=== PATIENT | female | born 1930 | race Caucasian/White ===

== ENCOUNTER → 2016-09-17 | Outpatient (CLI) | payer MEDICARE ==
[2016-09-17 15:52] LABS: BLOOD UREA NITROGEN 33 mg/dL (7-20); CREATININE RESULT 1.14 mg/dL (0.52-1.25)
== END ==
LOC: OD 12:41
PROVIDERS: ATTEND Internal Medicine
DX: Z01.812 Encounter for preprocedural laboratory examination (principal)
CPT/HCPCS: 36415; 82565; 84520

== ENCOUNTER → 2016-09-19 | Outpatient (CLI) | payer MEDICARE ==
--- NOTE | 2016-09-19 12:32 | RADIOLOGY REPORT (SQ) ---
EXAM DESCRIPTION: CT CHEST WITH COMPLETED DATE/TIME: 09/19/2016 10:34 am REASON FOR STUDY: COUGH R05 COUGH COMPARISON: 08/31/2015 TECHNIQUE: CT scan of the chest performed using helical scanning technique with dynamic intravenous contrast injection. Images reviewed with lung, soft tissue and bone windows. Reconstructed coronal and sagittal MPR images reviewed. All images stored on PACS. All CT scanners at this facility use dose modulation, iterative reconstruction, and/or weight based d osing when appropriate to reduce radiation dose to as low as reasonably achievable (ALARA). [facility]: Dose Right [facility]: CareDose [facility]: Dose Right [facility]: Teradose 4D [facility]: Hyperpublic CONTRAST TYPE AND DOSE: contrast/concentration: Isovue 370.00 mg/ml; Total Contrast Delivered: 68.5 ml; Total Saline Delivered: 20.0 ml RENAL FUNCTION: BUN 33 creatinine 1.14 RADIATION DOSE: Up-to-date CT equipment and radiation dose reduction techniques were employed. CTDIv ol: 4.9 mGy. DLP: 159 mGy-cm. . LIMITATIONS: None. FINDINGS: LUNGS AND PLEURA: Chronic parenchymal changes and bronchiectasis in the lateral segment of the right middle lobe are again noted and similar to the prior study. Scarring is noted in the righ t lower lobe at the site of the previously noted infiltrate. Scarring noted at both lung apices, unc hanged. Mild scarring noted at the left lung base in the lower lobe. No focal infiltrates are ident ified. No worrisome pulmonary lesions are identified. No pneumothorax. No effusion. HILAR AND MEDIASTINAL STRUCTURES: Calcifications again noted in the right hilum, unchanged. No adeno raymundo identified in the mediastinum or rohan HEART AND VASCULAR STRUCTURES: No aneurysm or dissection. Calcific and fibrofatty atheromatous disea se noted. No central pulmonary emboli. No pericardial effusion. Coronary artery calcifications. HARDWARE: None in the chest. UPPER ABDOMEN: No significant findings. 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 Limited exam . THYROID AND OTHER SOFT TISSUES: No masses. No adenopathy. BONES: Prior kyphoplasty at T8. Compression deformity of T6 and T7 in noted which have progressed in comparison the prior study compression deformity of the T11 also noted, unchanged. OTHER: No other significant finding. IMPRESSION: No acute abnormality identified within the chest. Chronic parenchymal changes noted in both lower lobes and in the right middle lobe. No worrisome pulmonary nodules. Multiple compression deformities noted throughout the thoracic spine, slightly progressed in comparison the prior CT. TECHNICAL DOCUMENTATION: JOB ID: [id number] Quality ID # [id number]: Final reports with documentation of one or more dose reduction techniques (e.g., Au tomated exposure control, adjustment of the mA and/or kV according to patient size, use of iterative reconstruction technique) 2010 [employer]- All Rights Reserved
== END ==
LOC: RAD 10:05
PROVIDERS: ATTEND Internal Medicine
DX: R05 Cough (principal); J47.9 Bronchiectasis, uncomplicated
CPT/HCPCS: 71260

== ENCOUNTER → 2017-03-06 | Outpatient (CLI) | payer MEDICARE ==
[2017-03-06 10:26] LABS: ABSOLUTE EOSINOPHILS # (AUTO) 0.2 10^3/uL (0.0-0.6); ABSOLUTE LYMPHOCYTES (AUTO) 0.8 10^3/uL (0.5-4.7); ABSOLUTE MONOCYTES (AUTO) 0.9 10^3/uL (0.1-1.4); ABSOLUTE NEUT (AUTO) 5.5 10^3/uL (1.7-8.2); BASOPHILS % (AUTO) 0.4 % (0-2); EOSINOPHILS % (AUTO) 3.2 % (0-6); HEMATOCRIT 35.4 % (36.0-47.0); HGB HCT DIFFERENCE 0.6; LYMPHOCYTES % (AUTO) 10.6 % (13-45); MEAN CORPUSCULAR HEMOGLOBIN 30.3 pg (27.0-33.4); MEAN CORPUSCULAR HGB CONC 33.9 g/dL (32.0-36.0); MEAN CORPUSCULAR VOLUME 89 fl (80-97); MONOCYTES % (AUTO) 12.1 % (3-13); RED BLOOD COUNT 3.96 10^6/uL (3.72-5.28); RED CELL DISTRIBUTION WIDTH 13.9 % (11.5-14.0); SEGMENTED NEUTROPHILS % (AUTO) 73.7 % (42-78); WHITE BLOOD COUNT 7.5 10^3/uL (4.0-10.5)
[2017-03-08 10:40] LABS: ARTERIAL BLOOD BASE EXCESS 7.1 mmol/L; ARTERIAL BLOOD O2 SATURATION 96.5 % (94-98)
== END ==
LOC: OD 08:48
PROVIDERS: ATTEND Internal Medicine Pulmonary Disease
DX: J47.9 Bronchiectasis, uncomplicated (principal)
CPT/HCPCS: 36415; 36600; 82803; 85025; 87070; 87077; 87205

== ENCOUNTER → 2017-03-08 | Outpatient (CLI) | payer MEDICARE ==
--- NOTE | 2017-03-08 11:44 | RADIOLOGY REPORT (SQ) ---
EXAM DESCRIPTION: CHEST PA/LATERAL COMPLETED DATE/TIME: 03/08/2017 10:47 am REASON FOR STUDY: BRONCHIECTASIS, UNCOMPLICATED,COPD J47.9 BRONCHIECTASIS, UNCOMPLICATED J44.9 CHR ONIC OBSTRUCTIVE PULMONARY DISEASE, UNSPECIFIED COMPARISON: 01/30/2017. NUMBER OF VIEWS: Two view. TECHNIQUE: Frontal and lateral radiographic views of the chest acquired. LIMITATIONS: None. FINDINGS: LUNGS AND PLEURA: Chronic pleural and parenchymal scarring. No infiltrates, masses or pne umothorax. No pleural effusion. Attenuated blood vessels and flattened ruthie-diaphragms. MEDIASTINUM AND HILAR STRUCTURES: No masses. No contour abnormalities. HEART AND VASCULAR STRUCTURES: Heart normal in size and contour. No evidence for failure. BONES: No acute findings. Chronic changes in the spine with previous kyphoplasty. HARDWARE: None in the chest. OTHER: No other significant finding. IMPRESSION: COPD. CHRONIC SCARRING. NO ACUTE RADIOGRAPHIC FINDING IN THE CHEST. TECHNICAL DOCUMENTATION: JOB ID: [id number] [employer]- All Rights Reserved
== END ==
LOC: OD 10:25
PROVIDERS: ATTEND Internal Medicine Pulmonary Disease
DX: J47.9 Bronchiectasis, uncomplicated (principal)
CPT/HCPCS: 71020

== ENCOUNTER 2017-03-11 00:12 | Inpatient (IN) | payer MEDICARE ==
[2017-03-11] MEDS ORDERED: MAGNESIUM SULFATE/D5W 1 GM/100 ML RTUPB IV PRN (00:26)
[2017-03-11] MEDS ORDERED: MAGNESIUM SULFATE/D5W 1 GM/100 ML RTUPB IV ONE (00:28)
--- NOTE | 2017-03-11 00:29 | ER Document Report ---
ED Respiratory Problem - General Chief Complaint: Shortness Of Breath Stated Complaint: DIFFICULTY BREATHING Time Seen by Provider: 03/11/17 00:19 Notes: Patient is an 86-year-old female with a history of COPD, bronchiectasis, 2 L nasal cannula oxygen dependence 24 7, atrial fibrillation, and cardiovascular disease that comes emergency department for chief complaint of respiratory distress. She has had a productive cough for 1 week, began having a fever this evening. EMS gave her 3 DuoNeb treatments, 125 mg of Solu-Medrol, afterwards she states she does feel significantly improved. She lives at home by herself. TRAVEL OUTSIDE OF THE [place] IN LAST 30 DAYS: No - Related Data Allergies/Adverse Reactions: adhesive Adverse Reaction (Unknown, Verified 01/31/17 15:15) lidocaine Adverse Reaction (Unknown, Verified 01/31/17 15:15) shellfish derived Adverse Reaction (Verified 01/31/17 15:12) NAUSEA & VOMITING Past Medical History - General Information source: Patient - Social History Smoking Status: Never Smoker Frequency of alcohol use: None Drug Abuse: None Lives with: Family Family History: CAD, COPD, Other - Dementia - Past Medical History Cardiac Medical History: Reports: Hx Atrial Fibrillation, Hx Hypercholesterolemia, Hx Hypertension Denies: Hx Coronary Artery Disease, Hx Heart Attack Pulmonary Medical History: Reports: Hx Asthma - "diminished lung volume", Hx Bronchitis - hx of, Hx COPD Denies: Hx Pneumonia Neurological Medical History: Denies: Hx Cerebrovascular Accident, Hx Seizures Renal/ Medical History: Denies: Hx Peritoneal Dialysis Malignancy Medical History: Reports: Hx Skin Cancer GI Medical History: Denies: Hx Hepatitis, Hx Ulcer Musculoskeltal Medical History: Reports Hx Arthritis - mild Psychiatric Medical History: Denies: Hx Depression Infectious Medical History: Denies: Hx Hepatitis Past Surgical History: Reports: Hx Oral Surgery - left foot exploratory, Other - Kyphoplasty - Immunizations Hx Diphtheria, Pertussis, Tetanus Vaccination: No Hx Pneumococcal Vaccination: 04/08/16 Review of Systems - Review of Systems Constitutional: No symptoms reported EENT: No symptoms reported Cardiovascular: See HPI Respiratory: See HPI Gastrointestinal: No symptoms reported Genitourinary: No symptoms reported Female Genitourinary: No symptoms reported Musculoskeletal: No symptoms reported Skin: No symptoms reported Hematologic/Lymphatic: No symptoms reported Neurological/Psychological: No symptoms reported Physical Exam - Vital signs Vitals: Resp BP Pulse Ox 29 H 126/62 H 95 12/04/17 00:25 03/11/17 00:25 03/11/17 00:25 Interpretation: Normal - General General appearance: Other - Patient with pursed lip breathing, mild tachypnea, however she does not appear to be in distress and she answers questions without difficulty - HEENT Head: Normocephalic, Atraumatic Eyes: Normal Pupils: PERRL - Respiratory Respiratory status: Pursed lip breathing, Tachypnea Chest status: Nontender Breath sounds: Decreased air movement, Wheezing - Mild end expiratory wheezes, air movement noted, no rales. Some scattered rhonchi Chest palpation: Normal - Cardiovascular Rhythm: Regular. No: Tachycardia Heart sounds: Normal auscultation, S1 appreciated, S2 appreciated Murmur: No - Abdominal Inspection: Normal Distension: No distension Bowel sounds: Normal Tenderness: Nontender. No: Tender, Guarding - Back Back: Normal, Nontender. No: Tender - Extremities General upper extremity: Normal inspection, Nontender, Normal strength, Normal temperature General lower extremity: Edema - Bilateral pitting edema, 2+, some tenderness and warmth, worse on the left, left has some increased erythema noted over the anterior tibial areas - Neurological Neuro grossly intact: Yes Cognition: Normal Orientation: AAOx4 Roseann Coma Scale Eye Opening: Spontaneous [place] Coma Scale Verbal: Oriented [place] Coma Scale Motor: Obeys Commands Roseann Coma Scale Total: 15 Speech: Normal Motor strength normal: LUE, RUE, LLE, RLE Sensory: Normal - Psychological Associated symptoms: Normal affect, Normal mood - Skin Skin Temperature: Warm Skin Moisture: Dry Skin Color: Normal Course - Re-evaluation Re-evalutation: Patient initially with pursed lip breathing and tachypnea, she is hypoxic without oxygen, she states her oxygen at home is no longer working. She is febrile, clinical picture consistent with bronchiectasis/COPD with pneumonia. CBC shows mild leukocytosis with elevation of neutrophils but no bandemia. Patient initially tachycardic with atrial fibrillation which is chronic, on Eliquis, however after breathing improved and she became more relaxed atrial fibrillation with RVR resolved. Because of history, recent hospitalizations, history of pneumonia and bronchiectasis, mild cellulitis, patient will be treated with cefepime and vancomycin. Blood culture sent. Blood gas does not show any concerning respiratory acidosis although oxygen is low. Chemistry shows renal insufficiency. Chest x-ray showing obvious infiltrate in the right middle lobe, also appears to have possible bilateral infiltrates, radiology read is pending. Mild effusions noted as well. Discussed with Dr. Torres, internal medicine, patient will be admitted for pneumonia, hypoxia, acute on chronic respiratory failure. - Vital Signs Vital signs: Temp Pulse Resp BP Pulse Ox 98.9 F 133 H 26 H 104/55 L 95 03/11/17 05:04 03/11/17 00:27 03/11/17 04:31 03/11/17 04:31 03/11/17 04:31 - Laboratory Result Diagrams: 03/11/17 00:25 03/11/17 00:25 Laboratory results interpreted by me: 03/11/17 03/11/17 03/11/17 00:25 00:25 01:05 WBC 13.1 H Hct 35.8 L RDW 14.2 H Plt Count 466 H Lymphocytes % 12.2 L Absolute Neutrophils 9.8 H ABG pH 7.50 H ABG pO2 62.7 L ABG HCO3 29.2 H ABG Total CO2 30.4 H ABG O2 Saturation 93.8 L BUN 38 H Creatinine 1.65 H Est GFR ( Amer) 36 L Est GFR (Non-Af Amer) 29 L Glucose 128 H Total Protein 6.2 L Albumin 3.4 L Discharge - Discharge Clinical Impression: Difficulty breathing, Hypoxia Fever Qualifiers: Fever type: unspecified Qualified Code(s): R50.9 - Fever, unspecified Pneumonia Qualifiers: Pneumonia type: due to unspecified organism Laterality: bilateral Lung location : unspecified part of lung Qualified Code(s): J18.9 - Pneumonia, unspecified organism Cellulitis Qualifiers: Site of cellulitis: extremity Site of cellulitis of extremity: lower extremity Laterality: left Qualified Code(s): L03.116 - Cellulitis of left lower limb Condition: Stable Disposition: ADMITTED INPATIENT Admitting Provider: Hospitalist Unit Admitted: Telemetry
[2017-03-11] MEDS ORDERED: CEFEPIME 2 GM/D5W RTU 2 GM/50 ML RTUPB IV ONE (00:47)
[2017-03-11] MEDS ORDERED: VANCOMYCIN HCL INJ 1000 MG VIAL IV ONE (00:48)
[2017-03-11 00:52] LABS: PROTHROMBIN TIME 14.2 SEC (11.4-15.4)
[2017-03-11 00:55] LABS: ABSOLUTE BASOPHILS # (AUTO) 0.1 10^3/uL (0.0-0.2); ABSOLUTE EOSINOPHILS # (AUTO) 0.3 10^3/uL (0.0-0.6); ABSOLUTE LYMPHOCYTES (AUTO) 1.6 10^3/uL (0.5-4.7); ABSOLUTE MONOCYTES (AUTO) 1.3 10^3/uL (0.1-1.4); ABSOLUTE NEUT (AUTO) 9.8 10^3/uL (1.7-8.2); BASOPHILS % (AUTO) 0.7 % (0-2); EOSINOPHILS % (AUTO) 2.3 % (0-6); HEMATOCRIT 35.8 % (36.0-47.0); HEMOGLOBIN 12.1 g/dL (12.0-15.5); HGB HCT DIFFERENCE 0.5; LYMPHOCYTES % (AUTO) 12.2 % (13-45); MEAN CORPUSCULAR HGB CONC 33.7 g/dL (32.0-36.0); MEAN CORPUSCULAR VOLUME 89 fl (80-97); MONOCYTES % (AUTO) 9.8 % (3-13); RED BLOOD COUNT 4.03 10^6/uL (3.72-5.28); RED CELL DISTRIBUTION WIDTH 14.2 % (11.5-14.0); WHITE BLOOD COUNT 13.1 10^3/uL (4.0-10.5)
[2017-03-11 01:20] LABS: ALANINE AMINOTRANSFERASE 51 U/L (9-52); ALBUMIN 3.4 g/dL (3.5-5.0); ALKALINE PHOSPHATASE 108 U/L (38-126); ANION GAP 14 (5-19); ASPARTATE AMINO TRANSFERASE 35 U/L (14-36); BILIRUBIN,DIRECT 0.4 mg/dL (0.0-0.4); BILIRUBIN,TOTAL 0.6 mg/dL (0.2-1.3); BLOOD UREA NITROGEN 38 mg/dL (7-20); CALCIUM 9.1 mg/dL (8.4-10.2); CARBON DIOXIDE 30 mmol/L (22-30); CHLORIDE 99 mmol/L (98-107); CREATINE KINASE 36 U/L (30-135); CREATININE RESULT 1.65 mg/dL (0.52-1.25); GLUCOSE 128 mg/dL (75-110); POTASSIUM 4.1 mmol/L (3.6-5.0); SODIUM 142.7 mmol/L (137-145); TOTAL PROTEIN 6.2 g/dL (6.3-8.2)
[2017-03-11 01:21] LABS: ARTERIAL BLOOD BASE EXCESS 5.7 mmol/L; ARTERIAL BLOOD O2 SATURATION 93.8 % (94-98)
--- NOTE | 2017-03-11 02:54 | RADIOLOGY REPORT (SQ) ---
EXAM DESCRIPTION: CHEST SINGLE VIEW COMPLETED DATE/TIME: 03/11/2017 2:36 am REASON FOR STUDY: fever, shortness of breath, cough COMPARISON: 03/08/2017. EXAM PARAMETERS: NUMBER OF VIEWS: One view. TECHNIQUE: Single frontal radiographic view of the chest acquired. RADIATION DOSE: NA LIMITATIONS: Rotated. FINDINGS: LUNGS AND PLEURA: Moderate opacity -effusion of bilateral lower hemithoraces. Moderate jr ng volume. MEDIASTINUM AND HILAR STRUCTURES: No masses. Contour normal. HEART AND VASCULAR STRUCTURES: Moderate enlargement of the cardiac silhouette. BONES: No acute findings. Mid thoracic vertebroplasty. HARDWARE: None in the chest. OTHER: No other significant finding. IMPRESSION: Moderate opacity -effusion of bilateral lower hemithoraces consistent with pneumonia and effusion. TECHNICAL DOCUMENTATION: JOB ID: [id number] [employer]- All Rights Reserved
[2017-03-11] MEDS ORDERED: ACETAMINOPHEN 325 MG TABLET PO PRN ×2 (04:09→16:28)
[2017-03-11] MEDS ORDERED: ALPRAZOLAM 0.25 MG TABLET PO PRN (04:23)
[2017-03-11] MEDS ORDERED: VANCOMYCIN HCL 0 MG in DEXTROSE 5%-WATER 250 ML IV NR (04:30)
[2017-03-11] MEDS ORDERED: METHYLPREDNISOLONE INJ 40 MG/1 ML SDV IV SCH (04:30)
--- NOTE | 2017-03-11 04:39 | PDOC H&P ---
History of Present Illness Admission Date/PCP: 03/11/17 03:33 DARCY LAL, History of Present Illness: NISH CALDERON is a 86 year old female with a PMH of COPD, a-fib, bronchiectasis who presents with a one week onset of increased cough, sputum production, chills , fever, tachypnea. Patient also reports that her home oxygen has malfunctioned. She also reports that she has been having some increased anxiety. patient reports that she has been feeling poorly since the initiation of Cardizem with increased weakness and lower extremity swelling. She is referred to the hospital service for right middle lobe pneumonia. Past Medical History Cardiac Medical History: Reports: Atrial Fibrillation, Hyperlipidema, Hypertension Denies: Coronary Artery Disease, Myocardial Infarction Pulmonary Medical History: Reports: Asthma - "diminished lung volume", Bronchitis - hx of, Chronic Obstructive Pulmonary Disease (COPD) Denies: Pneumonia Neurological Medical History: Denies: Seizures Malignancy Medical History: Reports: Skin Cancer GI Medical History: Denies: Hepatitis Musculoskeltal Medical History: Reports: Arthritis - mild Psychiatric Medical History: Denies: Depression Hematology: Denies: Anemia Past Surgical History Past Surgical History: Reports: Other - Kyphoplasty Social History Smoking Status: Never Smoker Frequency of Alcohol Use: Rare Hx Recreational Drug Use: No Drugs: None Hx Prescription Drug Abuse: No - Advance Directive Resuscitation Status: Do Not Resuscitate Surrogate healthcare decision maker:: Daughter Bing Family History Family History: CAD, COPD, Other - Dementia Parental Family History Reviewed: Yes Children Family History Reviewed: Yes Sibling(s) Family History Reviewed.: Yes Medication/Allergy Home Medications: Apixaban [Eliquis 2.5 mg Tablet] 2.5 mg PO Q12 01/29/17 Azelastine HCl 1 spray NAREB BID 01/29/17 Budesonide/Formoterol Fumarate [Symbicort HFA 160-4.5 mcg Inhaler 6 gm] 1 puff IH Q12 01/29/17 Cetirizine HCl [Zyrtec 10 mg Tablet] 10 mg PO DAILY 01/29/17 Prednisolone Acetate [Pred Forte] 1 drop OD QHS 01/29/17 Simvastatin [Zocor 20 mg Tablet] 20 mg PO QHS 01/29/17 Diltiazem HCl [Cardizem Cd 120 mg Capsule] 120 mg PO Q12 #60 cap.sr.24h Furosemide [Lasix 40 mg Tablet] 40 mg PO DAILY tablet 02/05/17 Lansoprazole [Prevacid 30 mg Odt Tablet] 30 mg PO Q6AM #30 tab.rap. 02/05/17 Levalbuterol HCl [Xopenex Neb 1.25 mg/3 ml Ampul] 1.25 mg NEB RTQ6 #120 vial.neb 02/05/17 Losartan Potassium [Cozaar 50 mg Tablet] 50 mg PO DAILY #0 02/05/17 Prednisone [Deltasone 10 mg Tablet] 10 mg PO BID #60 tablet 02/05/17 Tiotropium Dresser [Spiriva Handihaler 5 Cap/Kit (18 Mcg/Cap)] 1 cap IH DAILY 30 Days kit 02/05/17 Allergies/Adverse Reactions: adhesive Adverse Reaction (Unknown, Verified 01/31/17 15:15) lidocaine Adverse Reaction (Unknown, Verified 01/31/17 15:15) shellfish derived Adverse Reaction (Verified 01/31/17 15:12) NAUSEA & VOMITING Review of Systems Constitutional: PRESENT: chills, fatigue, fever(s). ABSENT: headache(s), weight gain, weight loss Eyes: ABSENT: visual disturbances Ears: ABSENT: hearing changes Cardiovascular: PRESENT: edema. ABSENT: chest pain, dyspnea on exertion, orthropnea, palpitations Respiratory: PRESENT: cough, dyspnea, sputum. ABSENT: hemoptysis Gastrointestinal: ABSENT: abdominal pain, constipation, diarrhea, hematemesis, hematochezia, nausea, vomiting Genitourinary: ABSENT: dysuria, hematuria Musculoskeletal: ABSENT: joint swelling Integumentary: PRESENT: erythema - Mild increased lower extremity erythema. ABSENT: rash, wounds Neurological: ABSENT: abnormal gait, abnormal speech, confusion, dizziness, focal weakness, syncope Psychiatric: ABSENT: anxiety, depression, homidical ideation, suicidal ideation Endocrine: ABSENT: cold intolerance, heat intolerance, polydipsia, polyuria Hematologic/Lymphatic: ABSENT: easy bleeding, easy bruising Physical Exam Vital Signs: Temp Pulse Resp BP Pulse Ox 100.1 F 133 H 18 126/62 H 92 03/11/17 00:27 03/11/17 00:27 03/11/17 00:27 03/11/17 00:27 03/11/17 00:27 General appearance: PRESENT: mild distress, well-developed, well-nourished Head exam: PRESENT: atraumatic, normocephalic Eye exam: PRESENT: conjunctiva pink, EOMI, PERRLA. ABSENT: scleral icterus Ear exam: PRESENT: normal external ear exam Mouth exam: PRESENT: dry mucosa, tongue midline Neck exam: ABSENT: JVD, lymphadenopathy, thyromegaly, tracheal deviation Respiratory exam: PRESENT: accessory muscle use, rhonchi, symmetrical, tachypnea , unlabored. ABSENT: rales, retraction, stridor, wheezes Cardiovascular exam: PRESENT: irregular rhythm, +S1, +S2. ABSENT: diastolic murmur, rubs, systolic murmur Pulses: PRESENT: normal dorsalis pedis pul Vascular exam: PRESENT: normal capillary refill GI/Abdominal exam: PRESENT: normal bowel sounds, soft. ABSENT: distended, guarding, mass, organolmegaly, rebound, tenderness Rectal exam: PRESENT: deferred Extremities exam: PRESENT: full ROM, +2 edema. ABSENT: calf tenderness, clubbing Neurological exam: PRESENT: alert, awake, oriented to person, oriented to place , oriented to time, oriented to situation, CN II-XII grossly intact. ABSENT: motor sensory deficit Psychiatric exam: PRESENT: appropriate affect, normal mood. ABSENT: homicidal ideation, suicidal ideation Skin exam: PRESENT: dry, intact, warm. ABSENT: cyanosis, rash Results Laboratory Results: 03/11/17 03/11/17 03/11/17 00:25 00:25 00:25 WBC 13.1 H Hgb 12.1 Hct 35.8 L Plt Count 466 H Seg Neutrophils % 75.0 INR 1.03 ABG pH ABG pCO2 ABG pO2 ABG HCO3 Creatinine 1.65 H Glucose 128 H Lactic Acid Troponin I 03/11/17 03/11/17 03/11/17 00:25 00:25 01:05 WBC Hgb Hct Plt Count Seg Neutrophils % INR ABG pH 7.50 H ABG pCO2 38.2 ABG pO2 62.7 L ABG HCO3 29.2 H Creatinine Glucose Lactic Acid 1.4 Troponin I < 0.012 Impressions: Chest X-Ray 03/11/17 00:25 IMPRESSION: Moderate opacity -effusion of bilateral lower hemithoraces consistent with pneumonia and effusion. Assessment & Plan - Diagnosis (1) Pneumonia Qualifiers: Pneumonia type: due to unspecified organism Laterality: bilateral Lung location: unspecified part of lung Qualified Code(s): J18.9 - Pneumonia, unspecified organism Is this a current diagnosis for this admission?: Yes Plan: Due to recent hospitalization will place patient on cefepime, vancomycin, and Levaquin. Place patient on scheduled nebulized treatments and re-evaluate for improvement. PRN Xopenex Place patient on IV Solu-Medrol Obtain sputum culture (2) Acute on chronic respiratory failure with hypoxemia Is this a current diagnosis for this admission?: Yes Plan: Oxygen as needed to maintain saturation greater than 90-94 (3) Acute renal failure Qualifiers: Acute renal failure type: unspecified Qualified Code(s): N17.9 - Acute kidney failure, unspecified Is this a current diagnosis for this admission?: Yes Plan: Likely secondary to increased insensible losses. Judiciously replenish fluid and replete (4) A-fib Qualifiers: Atrial fibrillation type: chronic Qualified Code(s): I48.2 - Chronic atrial fibrillation Is this a current diagnosis for this admission?: Yes Plan: Place patient on metoprolol and stop Cardizem Continue eliquis (5) Acute exacerbation of chronic obstructive pulmonary disease Is this a current diagnosis for this admission?: Yes Plan: Place patient on scheduled nebulized treatments and re-evaluate for improvement. PRN Xopenex Place patient on IV Solu-Medrol Obtain sputum culture (6) Hypertension Qualifiers: Hypertension type: essential hypertension Qualified Code(s): I10 - Essential (primary) hypertension Is this a current diagnosis for this admission?: Yes Plan: Place on metoprolol and stop Cardizem (7) DNR (do not resuscitate) Is this a current diagnosis for this admission?: Yes (8) Lower extremity edema Is this a current diagnosis for this admission?: Yes Plan: Well patient suffers from chronic lower extremity edema, will obtain bilateral venous Dopplers to evaluate for possible DVT. Will also stop her Cardizem as I feel that this is contributing to her increased lower extremity edema. 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
--- NOTE | 2017-03-11 06:06 | EKG REPORT ---
SEVERITY:- ABNORMAL ECG - ATRIAL FIBRILLATION, V-RATE 105-132 ANTERIOR INFARCT, AGE INDETERMINATE : Confirmed by: Ignacio Jiménez MD 11-Mar-2017 06:05:31
[2017-03-11] MEDS: LEVALBUTEROL HCL NEB 1.25 MG/3 ML AMPUL NEB PRN (06:11)
[2017-03-11] MEDS: IPRATROPIUM/ALBUTEROL 0.5-2.5 MG/3 ML AMPUL NEB SCH ×3 (07:47→20:30)
[2017-03-11] MEDS: LANSOPRAZOLE 30 MG TAB.RAP.DR PO SCH (07:47)
[2017-03-11] MEDS: METHYLPREDNISOLONE INJ 125 MG/2 ML SDV IV SCH ×3 (07:48→22:14)
[2017-03-11] MEDS: LEVALBUTEROL HCL NEB 1.25 MG/3 ML AMPUL NEB SCH ×3 (08:11→20:30)
[2017-03-11] MEDS ORDERED: CEFEPIME 2 GM/D5W RTU 2 GM/50 ML RTUPB IV SCH (10:00)
[2017-03-11] MEDS ORDERED: (PENDING PHARMACY ID) (Azelastine Hcl [Azelastine Hcl] 1 SPRAY) NAREB SCH (10:00)
[2017-03-11] MEDS ORDERED: LEVOFLOXACIN 750 MG/D5W RTU 750 MG/150 ML RTUPB IV SCH (10:00)
[2017-03-11] MEDS: LEVOFLOXACIN 750 MG/D5W RTU 750 MG/150 ML RTUPB IV SCH (10:33)
[2017-03-11] MEDS: GUAIFENESIN 600 MG TABLET.SA PO SCH ×2 (10:34→22:14)
[2017-03-11] MEDS: CETIRIZINE 10 MG TABLET PO SCH (10:35)
[2017-03-11] MEDS: FUROSEMIDE 40 MG TABLET PO SCH (10:35)
[2017-03-11] MEDS: APIXABAN 2.5 MG TABLET PO SCH ×2 (10:35→22:15)
[2017-03-11] MEDS: NORMAL SALINE 1000 ML 1,000 ML IV PRN (10:36)
--- NOTE | 2017-03-11 10:38 | RADIOLOGY REPORT (SQ) ---
EXAM DESCRIPTION: VENOUS BILATERAL LOWER COMPLETED DATE/TIME: 03/11/2017 10:17 am REASON FOR STUDY: ble swelling COMPARISON: None. TECHNIQUE: Dynamic and static mcmanus scale and color images acquired of both lower extremity venous sy stems. Selected spectral images acquired with additional compression and augmentation maneuvers. Imag es stored on PACS. LIMITATIONS: None. FINDINGS: RIGHT LEG COMMON FEMORAL AND FEMORAL: Normal phasicity, compression and augmentation. No visualized echogenic m aterial on mcmanus scale. No defects on color images. POPLITEAL: Normal compression and augmentation. No visualized echogenic material on mcmanus scale. No de fects on color images. CALF VESSELS: Normal compression and augmentation. No visualized echogenic material on mcmanus scale. No defects on color image. GSV AND SSV: Normal compression. No visualized echogenic material on mcmanus scale. No defects on color images. ANY DEEP VENOUS INSUFFICIENCY: Not evaluated. ANY EVIDENCE OF POPLITEAL CYST: No. OTHER: No other significant finding. LEFT LEG COMMON FEMORAL AND FEMORAL: Normal phasicity, compression and augmentation. No visualized echogenic m aterial on mcmanus scale. No defects on color images. POPLITEAL: Normal compression and augmentation. No visualized echogenic material on mcmanus scale. No de fects on color images. CALF VESSELS: Normal compression and augmentation. No visualized echogenic material on mcmanus scale. No defects on color images. GSV AND SSV: Normal compression. No visualized echogenic material on mcmnaus scale. No defects on color images. ANY DEEP VENOUS INSUFFICIENCY: Not evaluated. ANY EVIDENCE POPLITEAL CYST: No. OTHER: No other significant finding. IMPRESSION: NO EVIDENCE DVT OR SVT IN EITHER LEG. TECHNICAL DOCUMENTATION: JOB ID: [id number] [employer]- All Rights Reserved
[2017-03-11] MEDS: METOPROLOL SUCCINATE 50 MG TAB.SR.24H PO SCH ×2 (10:44→22:15)
[2017-03-11] MEDS: LOSARTAN POTASSIUM 50 MG TABLET PO SCH (10:44)
[2017-03-11] MEDS ORDERED: LEVOFLOXACIN 750 MG/D5W RTU 750 MG/150 ML RTUPB IV ONE (11:00)
[2017-03-11] MEDS: TIOTROPIUM BROMIDE DPI 5 CAP/KIT (18 MCG/CAP) IH SCH (12:36)
[2017-03-11] MEDS: BUDESONIDE/FORMOTEROL 160-4.5 MCG 60 PUFF/6 GM MDI IH SCH ×2 (12:37→22:15)
[2017-03-11] MEDS: CEFEPIME 2 GM/D5W RTU 2 GM/50 ML RTUPB IV SCH (14:33)
[2017-03-11] MEDS ORDERED: CETIRIZINE 10 MG TABLET PO PRN (16:28)
[2017-03-11 16:31] LABS: APPEARANCE,URINE CLEAR; BILIRUBIN,URINE NEGATIVE (NEGATIVE); GLUCOSE, URINE NEGATIVE (NEGATIVE); KETONES,URINE NEGATIVE (NEGATIVE); LEUKOCYTE ESTERASE,URINE NEGATIVE (NEGATIVE); NITRITE,URINE NEGATIVE (NEGATIVE); PROTEIN,URINE NEGATIVE (NEGATIVE); URINE SPECIFIC GRAVITY 1.008; UROBILINOGEN,URINE NEGATIVE mg/dL (<2.0)
[2017-03-11] MEDS ORDERED: LEVALBUTEROL HCL NEB 1.25 MG/3 ML AMPUL NEB SCH (20:00)
[2017-03-11] MEDS ORDERED: BUDESONIDE/FORMOTEROL 160-4.5 MCG 60 PUFF/6 GM MDI IH SCH (22:00)
[2017-03-11] MEDS ORDERED: SIMVASTATIN 10 MG PO SCH (22:00)
[2017-03-11] MEDS ORDERED: APIXABAN 2.5 MG TABLET PO SCH (22:00)
[2017-03-11] MEDS: SIMVASTATIN 10 MG TABLET PO SCH (22:15)
[2017-03-12] MEDS: CEFEPIME 2 GM/D5W RTU 2 GM/50 ML RTUPB IV SCH ×2 (01:05→13:45)
[2017-03-12] MEDS: IPRATROPIUM/ALBUTEROL 0.5-2.5 MG/3 ML AMPUL NEB SCH ×4 (02:11→20:30)
[2017-03-12] MEDS: LEVALBUTEROL HCL NEB 1.25 MG/3 ML AMPUL NEB SCH ×4 (02:11→21:46)
[2017-03-12] MEDS: NORMAL SALINE 1000 ML 1,000 ML IV PRN (06:11)
[2017-03-12] MEDS: LANSOPRAZOLE 30 MG TAB.RAP.DR PO SCH (06:11)
[2017-03-12] MEDS: METHYLPREDNISOLONE INJ 125 MG/2 ML SDV IV SCH ×3 (06:12→21:32)
[2017-03-12 06:57] LABS: ABSOLUTE BASOPHILS # (AUTO) 0.1 10^3/uL (0.0-0.2); ABSOLUTE MONOCYTES (AUTO) 0.4 10^3/uL (0.1-1.4); ABSOLUTE NEUT (AUTO) 16.2 10^3/uL (1.7-8.2); BASOPHILS % (AUTO) 0.5 % (0-2); HEMATOCRIT 33.9 % (36.0-47.0); HEMOGLOBIN 11.4 g/dL (12.0-15.5); HGB HCT DIFFERENCE 0.3; LYMPHOCYTES % (AUTO) 5.8 % (13-45); MEAN CORPUSCULAR HEMOGLOBIN 29.7 pg (27.0-33.4); MEAN CORPUSCULAR HGB CONC 33.6 g/dL (32.0-36.0); MEAN CORPUSCULAR VOLUME 88 fl (80-97); MONOCYTES % (AUTO) 2.5 % (3-13); RED BLOOD COUNT 3.83 10^6/uL (3.72-5.28); RED CELL DISTRIBUTION WIDTH 14.4 % (11.5-14.0); SEGMENTED NEUTROPHILS % (AUTO) 91.2 % (42-78); WHITE BLOOD COUNT 17.8 10^3/uL (4.0-10.5)
[2017-03-12 07:11] LABS: ANION GAP 13 (5-19); BLOOD UREA NITROGEN 34 mg/dL (7-20); CALCIUM 9.4 mg/dL (8.4-10.2); CARBON DIOXIDE 27 mmol/L (22-30); CHLORIDE 101 mmol/L (98-107); CREATININE RESULT 1.16 mg/dL (0.52-1.25); GLUCOSE 146 mg/dL (75-110); POTASSIUM 4.5 mmol/L (3.6-5.0); SODIUM 141.2 mmol/L (137-145)
--- NOTE | 2017-03-12 08:26 | PDOC PROGRESS REPORT ---
Subjective Progress Note for:: 03/12/17 Subjective:: The patient states to feel the same. She is still very short of breath. She is very upset about being hospitalized. Reason For Visit: PNEUMONIA Physical Exam Vital Signs: Temp Pulse Resp BP Pulse Ox 97.8 F 106 H 18 122/73 93 03/12/17 07:28 03/12/17 07:50 03/12/17 07:50 03/12/17 07:28 03/12/17 07:50 Pulse Oximeter Continuous Start: 03/11/17 04: 11 Freq: RTQ4 Status: Active Document 03/12/17 07:50 [facility] (Rec: 03/12/17 08:19 DS [email or web address]) Pulse Oximetry Assessment Oxygen Saturation (92-100) 93 Oxygen Flow Rate (L/min) 2 Oxygen Delivery Method Nasal Cannula Equipment Usage Equipment in Use Continuous SpO2 Machine # 10 Intake & Output 03/11/17 03/12/17 03/13/17 06:59 06:59 06:59 Intake Total 50 Balance 50 Weight 67.1 kg General appearance: PRESENT: mild distress Head exam: PRESENT: atraumatic Eye exam: PRESENT: conjunctiva pink Neck exam: ABSENT: carotid bruit, JVD Respiratory exam: PRESENT: rhonchi, tachypnea, wheezes Cardiovascular exam: PRESENT: irregular rhythm, +S1, +S2 GI/Abdominal exam: PRESENT: normal bowel sounds, soft Extremities exam: PRESENT: tenderness Musculoskeletal exam: PRESENT: tenderness Neurological exam: PRESENT: alert, awake Psychiatric exam: PRESENT: anxious Results Laboratory Results: 03/12/17 06:19 03/12/17 06:19 03/11/17 03/12/17 03/12/17 15:39 06:19 06:19 WBC 17.8 H RBC 3.83 Hgb 11.4 L Hct 33.9 L MCV 88 MCH 29.7 MCHC 33.6 RDW 14.4 H Plt Count 464 H Seg Neutrophils % 91.2 H Lymphocytes % 5.8 L Monocytes % 2.5 L Eosinophils % 0.0 Basophils % 0.5 Absolute Neutrophils 16.2 H Absolute Lymphocytes 1.0 Absolute Monocytes 0.4 Absolute Eosinophils 0.0 Absolute Basophils 0.1 Sodium 141.2 Potassium 4.5 Chloride 101 Carbon Dioxide 27 Anion Gap 13 BUN 34 H Creatinine 1.16 Est GFR ( Amer) 53 L Est GFR (Non-Af Amer) 44 L Glucose 146 H Calcium 9.4 Urine Color STRAW Urine Appearance CLEAR Urine pH 6.0 Ur Specific [place] 1.008 Urine Protein NEGATIVE Urine Glucose (UA) NEGATIVE Urine Ketones NEGATIVE Urine Blood NEGATIVE Urine Nitrite NEGATIVE Ur Leukocyte Esterase NEGATIVE Impressions: Venous Doppler Study 03/11/17 00:00 IMPRESSION: NO EVIDENCE DVT OR SVT IN EITHER LEG. Chest X-Ray 03/11/17 00:25 IMPRESSION: Moderate opacity -effusion of bilateral lower hemithoraces consistent with pneumonia and effusion. Assessment & Plan - Diagnosis (1) Acute on chronic respiratory failure with hypoxemia Is this a current diagnosis for this admission?: Yes Plan: Continue oxygen (2) Pneumonia Qualifiers: Pneumonia type: due to unspecified organism Laterality: bilateral Lung location: unspecified part of lung Qualified Code(s): J18.9 - Pneumonia, unspecified organism Is this a current diagnosis for this admission?: Yes Plan: Continue present antibiotics (3) A-fib Qualifiers: Atrial fibrillation type: chronic Qualified Code(s): I48.2 - Chronic atrial fibrillation Is this a current diagnosis for this admission?: Yes Plan: Continue current medications to rate control and Eliquis (4) Acute exacerbation of chronic obstructive pulmonary disease Is this a current diagnosis for this admission?: Yes Plan: Continue nebulization treatments and steroids (5) Hypertension Qualifiers: Hypertension type: essential hypertension Qualified Code(s): I10 - Essential (primary) hypertension Is this a current diagnosis for this admission?: Yes Plan: Continue current medications
[2017-03-12] MEDS ORDERED: LOSARTAN POTASSIUM 50 MG TABLET PO SCH (10:00)
[2017-03-12] MEDS ORDERED: (PENDING PHARMACY ID) (Tiotropium Bromide [Spiriva Respimat] 1 PUFF) IH SCH (10:00)
[2017-03-12] MEDS: PREDNISOLONE ACETATE 1% OPH SUSP 5 ML OD SCH (10:12)
[2017-03-12] MEDS: BUDESONIDE/FORMOTEROL 160-4.5 MCG 60 PUFF/6 GM MDI IH SCH ×2 (10:12→21:32)
[2017-03-12] MEDS: TIOTROPIUM BROMIDE DPI 5 CAP/KIT (18 MCG/CAP) IH SCH (10:12)
[2017-03-12] MEDS: CETIRIZINE 10 MG TABLET PO SCH (10:12)
[2017-03-12] MEDS: METOPROLOL SUCCINATE 50 MG TAB.SR.24H PO SCH ×2 (10:13→21:32)
[2017-03-12] MEDS: LOSARTAN POTASSIUM 50 MG TABLET PO SCH (10:13)
[2017-03-12] MEDS: GUAIFENESIN 600 MG TABLET.SA PO SCH ×2 (10:14→21:33)
[2017-03-12] MEDS: APIXABAN 2.5 MG TABLET PO SCH ×2 (10:15→21:32)
[2017-03-12] MEDS: FUROSEMIDE 40 MG TABLET PO SCH (11:47)
[2017-03-12] MEDS: SIMVASTATIN 10 MG TABLET PO SCH (21:32)
[2017-03-13] MEDS ORDERED: VANCOMYCIN HCL 1,000 MG in DEXTROSE 5%-WATER 250 ML IV SCH ×2
[2017-03-13] MEDS: LEVALBUTEROL HCL NEB 1.25 MG/3 ML AMPUL NEB SCH ×4 (02:08→20:22)
[2017-03-13] MEDS: IPRATROPIUM/ALBUTEROL 0.5-2.5 MG/3 ML AMPUL NEB SCH ×4 (02:08→20:45)
[2017-03-13] MEDS: CEFEPIME 2 GM/D5W RTU 2 GM/50 ML RTUPB IV SCH ×2 (02:34→13:50)
[2017-03-13] MEDS: METHYLPREDNISOLONE INJ 125 MG/2 ML SDV IV SCH ×3 (05:26→17:44)
[2017-03-13] MEDS: LANSOPRAZOLE 30 MG TAB.RAP.DR PO SCH (05:26)
[2017-03-13 06:21] LABS: ABSOLUTE LYMPHOCYTES (AUTO) 0.7 10^3/uL (0.5-4.7); ABSOLUTE MONOCYTES (AUTO) 0.5 10^3/uL (0.1-1.4); BASOPHILS % (AUTO) 0.1 % (0-2); HEMATOCRIT 30.2 % (36.0-47.0); HEMOGLOBIN 10.2 g/dL (12.0-15.5); HGB HCT DIFFERENCE 0.4; LYMPHOCYTES % (AUTO) 5.1 % (13-45); MEAN CORPUSCULAR HEMOGLOBIN 30.1 pg (27.0-33.4); MEAN CORPUSCULAR HGB CONC 33.8 g/dL (32.0-36.0); MEAN CORPUSCULAR VOLUME 89 fl (80-97); MONOCYTES % (AUTO) 3.8 % (3-13); RED BLOOD COUNT 3.39 10^6/uL (3.72-5.28); RED CELL DISTRIBUTION WIDTH 14.6 % (11.5-14.0); WHITE BLOOD COUNT 13.2 10^3/uL (4.0-10.5)
[2017-03-13 06:22] LABS: ANION GAP 12 (5-19); BLOOD UREA NITROGEN 37 mg/dL (7-20); CALCIUM 8.4 mg/dL (8.4-10.2); CARBON DIOXIDE 28 mmol/L (22-30); CHLORIDE 103 mmol/L (98-107); GLUCOSE 141 mg/dL (75-110); SODIUM 142.6 mmol/L (137-145)
--- NOTE | 2017-03-13 08:24 | PDOC PROGRESS REPORT ---
Subjective Progress Note for:: 03/13/17 Subjective:: The patient states to feel the same. She is still breathing through pursed lips and cannot talk in full sentences. She is still contemplating of going home on Saturday. Advised the patient that that would not be a good idea because she is not stable enough. Reason For Visit: PNEUMONIA Physical Exam Vital Signs: Temp Pulse Resp BP Pulse Ox 97.8 F 93 16 131/79 H 93 03/13/17 07:36 03/13/17 07:36 03/13/17 07:36 03/13/17 07:36 03/13/17 07:36 Pulse Oximeter Continuous Start: 03/11/17 04: 11 Freq: RTQ4 Status: Active Document 03/13/17 04:08 EAL (Rec: 03/13/17 05:28 EAL [email or web address]) Pulse Oximetry Assessment Oxygen Saturation (92-100) 91 Oxygen Flow Rate (L/min) 3 Oxygen Delivery Method Nasal Cannula Equipment Usage Equipment in Use Continuous SpO2 Machine # N-10 Intake & Output 03/12/17 03/13/17 03/14/17 06:59 06:59 06:59 Intake Total 50 2372 Output Total 0 Balance 50 2372 Weight 67.1 kg General appearance: PRESENT: severe distress Head exam: PRESENT: atraumatic Eye exam: PRESENT: conjunctiva pink Neck exam: PRESENT: carotid bruit. ABSENT: JVD Respiratory exam: PRESENT: prolonged expiratory phas, rhonchi, tachypnea, wheezes Cardiovascular exam: PRESENT: irregular rhythm, +S1, +S2 GI/Abdominal exam: PRESENT: normal bowel sounds, soft Extremities exam: PRESENT: tenderness Musculoskeletal exam: PRESENT: tenderness Neurological exam: PRESENT: alert, awake Psychiatric exam: PRESENT: anxious Results Laboratory Results: 03/13/17 05:07 03/13/17 05:07 03/13/17 03/13/17 05:07 05:07 WBC 13.2 H RBC 3.39 L Hgb 10.2 L Hct 30.2 L MCV 89 MCH 30.1 MCHC 33.8 RDW 14.6 H Plt Count 424 Seg Neutrophils % 91.0 H Lymphocytes % 5.1 L Monocytes % 3.8 Eosinophils % 0.0 Basophils % 0.1 Absolute Neutrophils 12.0 H Absolute Lymphocytes 0.7 Absolute Monocytes 0.5 Absolute Eosinophils 0.0 Absolute Basophils 0.0 Sodium 142.6 Potassium 4.0 Chloride 103 Carbon Dioxide 28 Anion Gap 12 BUN 37 H Creatinine 1.20 Est GFR ( Amer) 51 L Est GFR (Non-Af Amer) 42 L Glucose 141 H Calcium 8.4 Impressions: Venous Doppler Study 03/11/17 00:00 IMPRESSION: NO EVIDENCE DVT OR SVT IN EITHER LEG. Chest X-Ray 03/11/17 00:25 IMPRESSION: Moderate opacity -effusion of bilateral lower hemithoraces consistent with pneumonia and effusion. Assessment & Plan - Diagnosis (1) Acute on chronic respiratory failure with hypoxemia Is this a current diagnosis for this admission?: Yes Plan: Very slow progression. (2) Pneumonia Qualifiers: Pneumonia type: due to unspecified organism Laterality: bilateral Lung location: unspecified part of lung Qualified Code(s): J18.9 - Pneumonia, unspecified organism Is this a current diagnosis for this admission?: Yes Plan: Continue present antibiotics (3) A-fib Qualifiers: Atrial fibrillation type: chronic Qualified Code(s): I48.2 - Chronic atrial fibrillation Is this a current diagnosis for this admission?: Yes Plan: Because of severe COPD I will switch from metoprolol to diltiazem. (4) Acute exacerbation of chronic obstructive pulmonary disease Is this a current diagnosis for this admission?: Yes Plan: Continue IV steroids. Will reconsult pulmonology (5) Hypertension Qualifiers: Hypertension type: essential hypertension Qualified Code(s): I10 - Essential (primary) hypertension Is this a current diagnosis for this admission?: Yes Plan: Continue current medications
[2017-03-13] MEDS: PREDNISOLONE ACETATE 1% OPH SUSP 5 ML OD SCH (09:32)
[2017-03-13] MEDS: LOSARTAN POTASSIUM 50 MG TABLET PO SCH (09:33)
[2017-03-13] MEDS: CETIRIZINE 10 MG TABLET PO SCH (09:33)
[2017-03-13] MEDS: DILTIAZEM HCL 120 MG CAP.SR.24H PO SCH ×2 (09:33→21:33)
[2017-03-13] MEDS: GUAIFENESIN 600 MG TABLET.SA PO SCH ×2 (09:33→21:25)
[2017-03-13] MEDS: FUROSEMIDE 40 MG TABLET PO SCH (09:33)
[2017-03-13] MEDS: TIOTROPIUM BROMIDE DPI 5 CAP/KIT (18 MCG/CAP) IH SCH (09:33)
[2017-03-13] MEDS: BUDESONIDE/FORMOTEROL 160-4.5 MCG 60 PUFF/6 GM MDI IH SCH ×2 (09:34→21:23)
[2017-03-13] MEDS: LEVOFLOXACIN 750 MG/D5W RTU 750 MG/150 ML RTUPB IV SCH (09:34)
[2017-03-13] MEDS: APIXABAN 2.5 MG TABLET PO SCH ×2 (09:35→21:23)
--- NOTE | 2017-03-13 13:24 | RADIOLOGY REPORT (SQ) ---
EXAM DESCRIPTION: CHEST PA/LAT COMPLETED DATE/TIME: 03/13/2017 12:52 pm REASON FOR STUDY: pneumonia COMPARISON: 01/30/2017 EXAM PARAMETERS: NUMBER OF VIEWS: two views TECHNIQUE: Digital Frontal and Lateral radiographic views of the chest acquired. RADIATION DOSE: NA LIMITATIONS: none FINDINGS: LUNGS AND PLEURA: Small bilateral pleural effusions are identified showing interval increa se as compared to the previous study. I cannot exclude some associated atelectasis or infiltrate in the lung bases. Small amount of fluid is identified in the major fissure best seen in the lateral pr ojection. Chronic appearing changes are again identified. MEDIASTINUM AND HILAR STRUCTURES: No masses or contour abnormalities. HEART AND VASCULAR STRUCTURES: The configuration of the heart and mediastinal structures is unchanged . BONES: Patient is status post kyphoplasty in 1 of the mid thoracic vertebra. HARDWARE: None in the chest. OTHER: No other significant finding. IMPRESSION: Small bilateral pleural effusions are identified showing interval increase in size as co mpared to the previous study. I cannot exclude some associated atelectasis or infiltrate in the lung bases. Other findings as noted above TECHNICAL DOCUMENTATION: JOB ID: [id number]- All Rights Reserved
[2017-03-13] MEDS: LEVALBUTEROL HCL NEB 1.25 MG/3 ML AMPUL NEB PRN (14:01)
[2017-03-13] MEDS: SIMVASTATIN 10 MG TABLET PO SCH (21:25)
[2017-03-14] MEDS: METHYLPREDNISOLONE INJ 125 MG/2 ML SDV IV SCH ×5 (00:29→23:09)
[2017-03-14] MEDS: CEFEPIME 2 GM/D5W RTU 2 GM/50 ML RTUPB IV SCH ×2 (02:06→13:06)
[2017-03-14] MEDS: LEVALBUTEROL HCL NEB 1.25 MG/3 ML AMPUL NEB SCH ×4 (02:12→20:38)
[2017-03-14] MEDS: IPRATROPIUM/ALBUTEROL 0.5-2.5 MG/3 ML AMPUL NEB SCH ×4 (02:21→21:05)
[2017-03-14] MEDS: LANSOPRAZOLE 30 MG TAB.RAP.DR PO SCH (05:06)
[2017-03-14 06:38] LABS: HEMATOCRIT 34.8 % (36.0-47.0); HEMOGLOBIN 11.6 g/dL (12.0-15.5); MEAN CORPUSCULAR HEMOGLOBIN 29.7 pg (27.0-33.4); MEAN CORPUSCULAR HGB CONC 33.4 g/dL (32.0-36.0); MEAN CORPUSCULAR VOLUME 89 fl (80-97); RED CELL DISTRIBUTION WIDTH 14.5 % (11.5-14.0); WHITE BLOOD COUNT 12.9 10^3/uL (4.0-10.5)
[2017-03-14 07:02] LABS: ALANINE AMINOTRANSFERASE 42 U/L (9-52); ALBUMIN 3.1 g/dL (3.5-5.0); ALKALINE PHOSPHATASE 71 U/L (38-126); ANION GAP 14 (5-19); ASPARTATE AMINO TRANSFERASE 22 U/L (14-36); BILIRUBIN,DIRECT 0.5 mg/dL (0.0-0.4); BILIRUBIN,TOTAL 0.5 mg/dL (0.2-1.3); BLOOD UREA NITROGEN 42 mg/dL (7-20); CALCIUM 8.9 mg/dL (8.4-10.2); CARBON DIOXIDE 24 mmol/L (22-30); CHLORIDE 105 mmol/L (98-107); CREATININE RESULT 1.22 mg/dL (0.52-1.25); GLUCOSE 145 mg/dL (75-110); MAGNESIUM 2.4 mg/dL (1.6-2.3); POTASSIUM 3.7 mmol/L (3.6-5.0); SODIUM 142.8 mmol/L (137-145); TOTAL PROTEIN 5.8 g/dL (6.3-8.2)
[2017-03-14 07:38] LABS: BASOPHILS % (MANUAL) 0 % (0-2); EOSINOPHILS % (MANUAL) 0 % (0-6); LYMPHOCYTES % (MANUAL) 1 % (13-45); TOTAL CELLS COUNTED 100
[2017-03-14 07:39] LABS: ANISOCYTOSIS SLIGHT
[2017-03-14 07:40] LABS: TOXIC GRANULATION SLIGHT
--- NOTE | 2017-03-14 09:33 | PDOC PROGRESS REPORT ---
Subjective Progress Note for:: 03/14/17 Subjective:: The patient states to feel better. She is still having a lot of difficulty breathing. She is talking with the pursed lips and has difficulty completing sentences. Reason For Visit: PNEUMONIA Physical Exam Vital Signs: Temp Pulse Resp BP Pulse Ox 97.6 F 93 18 142/77 H 96 03/14/17 07:50 03/14/17 07:50 03/14/17 07:50 03/14/17 07:50 03/14/17 07:50 Pulse Oximeter Continuous Start: 03/11/17 04: 11 Freq: RTQ4 Status: Active Document 03/14/17 04:09 CMI (Rec: 03/14/17 04:10 CMI [email or web address]) Pulse Oximetry Assessment Oxygen Saturation (92-100) 92 Oxygen Flow Rate (L/min) 2 Oxygen Delivery Method Nasal Cannula Fraction of Inspired Oxygen (FIO2) 28 Equipment Usage Equipment in Use Continuous SpO2 Machine # N-10 Intake & Output 03/13/17 03/14/17 03/15/17 06:59 06:59 06:59 Intake Total 2372 2250 Output Total 0 1 Balance 2372 2249 General appearance: PRESENT: mild distress Head exam: PRESENT: atraumatic Eye exam: PRESENT: conjunctival injection Neck exam: ABSENT: carotid bruit, JVD Respiratory exam: PRESENT: crackles, decreased breath sounds, prolonged expiratory phas, rhonchi, wheezes Cardiovascular exam: PRESENT: irregular rhythm, +S1, +S2 GI/Abdominal exam: PRESENT: normal bowel sounds, soft Extremities exam: PRESENT: tenderness Musculoskeletal exam: PRESENT: tenderness Neurological exam: PRESENT: alert, awake Psychiatric exam: PRESENT: anxious Results Laboratory Results: 03/14/17 06:17 03/14/17 06:17 03/14/17 03/14/17 06:17 06:17 WBC 12.9 H RBC 3.90 Hgb 11.6 L Hct 34.8 L MCV 89 MCH 29.7 MCHC 33.4 RDW 14.5 H Plt Count 451 H Seg Neutrophils % Not Reportable Lymphocytes % Not Reportable Monocytes % Not Reportable Eosinophils % Not Reportable Basophils % Not Reportable Absolute Neutrophils Not Reportable Absolute Lymphocytes Not Reportable Absolute Monocytes Not Reportable Absolute Eosinophils Not Reportable Absolute Basophils Not Reportable Sodium 142.8 Potassium 3.7 Chloride 105 Carbon Dioxide 24 Anion Gap 14 BUN 42 H Creatinine 1.22 Est GFR ( Amer) 50 L Est GFR (Non-Af Amer) 42 L Glucose 145 H Calcium 8.9 Magnesium 2.4 H Total Bilirubin 0.5 AST 22 ALT 42 Alkaline Phosphatase 71 Total Protein 5.8 L Albumin 3.1 L 03/11/17 04:20 Sputum Gram Stain - Final 03/11/17 04:20 Sputum Sputum Culture - Final C.albicans/C.dubliniensis Normal Francesca 03/11/17 15:39 Clean Catch Midstream Urine Culture - Final NO GROWTH 2 DAYS Impressions: Venous Doppler Study 03/11/17 00:00 IMPRESSION: NO EVIDENCE DVT OR SVT IN EITHER LEG. Chest X-Ray 03/13/17 00:00 IMPRESSION: Small bilateral pleural effusions are identified showing interval increase in size as compared to the previous study. I cannot exclude some associated atelectasis or infiltrate in the lung bases. Other findings as noted above Assessment & Plan - Diagnosis (1) Acute on chronic respiratory failure with hypoxemia Is this a current diagnosis for this admission?: Yes Plan: Stable continue current treatment (2) Pneumonia Qualifiers: Pneumonia type: due to unspecified organism Laterality: bilateral Lung location: unspecified part of lung Qualified Code(s): J18.9 - Pneumonia, unspecified organism Is this a current diagnosis for this admission?: Yes Plan: Improving. Will switch from IV to p.o. Levaquin (3) A-fib Qualifiers: Atrial fibrillation type: chronic Qualified Code(s): I48.2 - Chronic atrial fibrillation Is this a current diagnosis for this admission?: Yes Plan: We will continue current treatment (4) Acute exacerbation of chronic obstructive pulmonary disease Is this a current diagnosis for this admission?: Yes Plan: Continue IV steroids. Will reconsult pulmonology (5) Hypertension Qualifiers: Hypertension type: essential hypertension Qualified Code(s): I10 - Essential (primary) hypertension Is this a current diagnosis for this admission?: Yes Plan: Continue current medications
[2017-03-14] MEDS: APIXABAN 2.5 MG TABLET PO SCH ×2 (10:45→21:43)
[2017-03-14] MEDS: BUDESONIDE/FORMOTEROL 160-4.5 MCG 60 PUFF/6 GM MDI IH SCH ×2 (10:49→21:43)
[2017-03-14] MEDS: CETIRIZINE 10 MG TABLET PO SCH (10:50)
[2017-03-14] MEDS: DILTIAZEM HCL 120 MG CAP.SR.24H PO SCH ×2 (10:50→21:42)
[2017-03-14] MEDS: FUROSEMIDE 40 MG TABLET PO SCH ×2 (10:51→17:38)
[2017-03-14] MEDS: GUAIFENESIN 600 MG TABLET.SA PO SCH ×2 (10:51→21:42)
[2017-03-14] MEDS: LEVOFLOXACIN 500 MG TABLET PO SCH (10:52)
[2017-03-14] MEDS: TIOTROPIUM BROMIDE DPI 5 CAP/KIT (18 MCG/CAP) IH SCH (10:52)
[2017-03-14] MEDS: LOSARTAN POTASSIUM 50 MG TABLET PO SCH (10:52)
[2017-03-14] MEDS: NYSTATIN/DEXAMETH/DIPHEN SUSP 120 ML PO SCH ×4 (10:53→21:43)
[2017-03-14] MEDS: PREDNISOLONE ACETATE 1% OPH SUSP 5 ML OD SCH (10:55)
[2017-03-14] MEDS: SIMVASTATIN 10 MG TABLET PO SCH (21:42)
[2017-03-15] MEDS: LEVALBUTEROL HCL NEB 1.25 MG/3 ML AMPUL NEB SCH ×4 (02:02→20:44)
[2017-03-15] MEDS: IPRATROPIUM/ALBUTEROL 0.5-2.5 MG/3 ML AMPUL NEB SCH ×4 (02:10→20:46)
[2017-03-15] MEDS: CEFEPIME 2 GM/D5W RTU 2 GM/50 ML RTUPB IV SCH ×2 (02:31→13:08)
[2017-03-15] MEDS: METHYLPREDNISOLONE INJ 125 MG/2 ML SDV IV SCH (05:48)
[2017-03-15] MEDS: LANSOPRAZOLE 30 MG TAB.RAP.DR PO SCH (05:48)
[2017-03-15 06:55] LABS: ANION GAP 15 (5-19); BLOOD UREA NITROGEN 45 mg/dL (7-20); CALCIUM 8.6 mg/dL (8.4-10.2); CARBON DIOXIDE 25 mmol/L (22-30); CHLORIDE 105 mmol/L (98-107); CREATININE RESULT 1.33 mg/dL (0.52-1.25); GLUCOSE 164 mg/dL (75-110); POTASSIUM 3.4 mmol/L (3.6-5.0); SODIUM 144.6 mmol/L (137-145)
--- NOTE | 2017-03-15 09:09 | PDOC PROGRESS REPORT ---
Subjective Progress Note for:: 03/15/17 Subjective:: The patient does feel better but she is still very anxious about not being able to breathe or move around the go home. Reason For Visit: PNEUMONIA Physical Exam Vital Signs: Temp Pulse Resp BP Pulse Ox 97.4 F 99 23 H 133/84 H 94 03/15/17 07:04 03/15/17 07:04 03/15/17 07:04 03/15/17 07:04 03/15/17 07:04 Pulse Oximeter Continuous Start: 03/11/17 04: 11 Freq: RTQ4 Status: Active Document 03/15/17 04:00 STI (Rec: 03/15/17 05:29 STI [email or web address]) Pulse Oximetry Assessment Oxygen Saturation (92-100) 96 Oxygen Flow Rate (L/min) 2.0 Oxygen Delivery Method Nasal Cannula Fraction of Inspired Oxygen (FIO2) 28 Equipment Usage Equipment in Use Continuous SpO2 Machine # 10 Intake & Output 03/14/17 03/15/17 03/16/17 06:59 06:59 06:59 Intake Total 2250 1439 Output Total 1 Balance 2249 1439 Weight 69.9 kg General appearance: PRESENT: mild distress Head exam: PRESENT: atraumatic Eye exam: PRESENT: conjunctival injection Neck exam: ABSENT: JVD Respiratory exam: PRESENT: crackles, rhonchi, tachypnea Cardiovascular exam: PRESENT: irregular rhythm, +S1, +S2 Pulses: PRESENT: +1 pedal pulses bilateral GI/Abdominal exam: PRESENT: normal bowel sounds, soft Extremities exam: PRESENT: pedal edema Musculoskeletal exam: PRESENT: tenderness Neurological exam: PRESENT: alert, awake Results Laboratory Results: 03/14/17 06:17 03/15/17 05:49 03/15/17 05:49 Sodium 144.6 Potassium 3.4 L Chloride 105 Carbon Dioxide 25 Anion Gap 15 BUN 45 H Creatinine 1.33 H Est GFR ( Amer) 46 L Est GFR (Non-Af Amer) 38 L Glucose 164 H Calcium 8.6 Impressions: Venous Doppler Study 03/11/17 00:00 IMPRESSION: NO EVIDENCE DVT OR SVT IN EITHER LEG. Chest X-Ray 03/13/17 00:00 IMPRESSION: Small bilateral pleural effusions are identified showing interval increase in size as compared to the previous study. I cannot exclude some associated atelectasis or infiltrate in the lung bases. Other findings as noted above Assessment & Plan - Diagnosis (1) Acute on chronic respiratory failure with hypoxemia Is this a current diagnosis for this admission?: Yes Plan: Continue current treatment (2) Pneumonia Qualifiers: Pneumonia type: due to unspecified organism Laterality: bilateral Lung location: unspecified part of lung Qualified Code(s): J18.9 - Pneumonia, unspecified organism Is this a current diagnosis for this admission?: Yes Plan: Continue current antibiotics (3) A-fib Qualifiers: Atrial fibrillation type: chronic Qualified Code(s): I48.2 - Chronic atrial fibrillation Is this a current diagnosis for this admission?: Yes Plan: We will continue current treatment (4) Acute exacerbation of chronic obstructive pulmonary disease Is this a current diagnosis for this admission?: Yes Plan: Continue IV steroids. Will reconsult pulmonology (5) Hypertension Qualifiers: Hypertension type: essential hypertension Qualified Code(s): I10 - Essential (primary) hypertension Is this a current diagnosis for this admission?: Yes Plan: Continue current medications
[2017-03-15] MEDS: TIOTROPIUM BROMIDE DPI 5 CAP/KIT (18 MCG/CAP) IH SCH (09:51)
[2017-03-15] MEDS: BUDESONIDE/FORMOTEROL 160-4.5 MCG 60 PUFF/6 GM MDI IH SCH ×2 (09:51→21:29)
[2017-03-15] MEDS: PREDNISOLONE ACETATE 1% OPH SUSP 5 ML OD SCH (09:52)
[2017-03-15] MEDS: POTASSIUM CHLORIDE 10 MEQ TABLET.SA PO SCH (09:53)
[2017-03-15] MEDS: NYSTATIN/DEXAMETH/DIPHEN SUSP 120 ML PO SCH ×4 (09:53→21:29)
[2017-03-15] MEDS: GUAIFENESIN 600 MG TABLET.SA PO SCH ×2 (09:54→21:29)
[2017-03-15] MEDS: LEVOFLOXACIN 500 MG TABLET PO SCH (09:54)
[2017-03-15] MEDS: LOSARTAN POTASSIUM 50 MG TABLET PO SCH (09:54)
[2017-03-15] MEDS: DILTIAZEM HCL 120 MG CAP.SR.24H PO SCH ×2 (09:55→21:30)
[2017-03-15] MEDS: FUROSEMIDE 40 MG TABLET PO SCH ×2 (09:55→18:41)
[2017-03-15] MEDS: CETIRIZINE 10 MG TABLET PO SCH (09:55)
[2017-03-15] MEDS: APIXABAN 2.5 MG TABLET PO SCH ×2 (09:56→21:29)
[2017-03-15] MEDS: PREDNISONE 20 MG TABLET PO SCH ×2 (09:56→18:40)
[2017-03-15] MEDS: SIMVASTATIN 10 MG TABLET PO SCH (21:29)
[2017-03-16] MEDS: IPRATROPIUM/ALBUTEROL 0.5-2.5 MG/3 ML AMPUL NEB SCH ×4 (01:08→20:27)
[2017-03-16] MEDS: LEVALBUTEROL HCL NEB 1.25 MG/3 ML AMPUL NEB SCH ×4 (02:07→20:27)
[2017-03-16] MEDS: CEFEPIME 2 GM/D5W RTU 2 GM/50 ML RTUPB IV SCH ×2 (03:09→13:49)
[2017-03-16] MEDS: LANSOPRAZOLE 30 MG TAB.RAP.DR PO SCH (05:34)
[2017-03-16] MEDS: BUDESONIDE/FORMOTEROL 160-4.5 MCG 60 PUFF/6 GM MDI IH SCH ×2 (09:39→21:27)
[2017-03-16] MEDS: GUAIFENESIN 600 MG TABLET.SA PO SCH ×2 (09:40→21:27)
[2017-03-16] MEDS: PREDNISONE 20 MG TABLET PO SCH ×2 (09:40→18:11)
[2017-03-16] MEDS: FUROSEMIDE 40 MG TABLET PO SCH ×2 (09:41→18:11)
[2017-03-16] MEDS: LEVOFLOXACIN 500 MG TABLET PO SCH (09:41)
[2017-03-16] MEDS: DILTIAZEM HCL 120 MG CAP.SR.24H PO SCH ×2 (09:41→21:27)
[2017-03-16] MEDS: POTASSIUM CHLORIDE 10 MEQ TABLET.SA PO SCH (09:41)
[2017-03-16] MEDS: CETIRIZINE 10 MG TABLET PO SCH (09:41)
[2017-03-16] MEDS: NYSTATIN/DEXAMETH/DIPHEN SUSP 120 ML PO SCH ×4 (09:42→21:27)
[2017-03-16] MEDS: LOSARTAN POTASSIUM 50 MG TABLET PO SCH (09:42)
[2017-03-16] MEDS: PREDNISOLONE ACETATE 1% OPH SUSP 5 ML OD SCH (09:43)
[2017-03-16] MEDS: APIXABAN 2.5 MG TABLET PO SCH ×2 (09:52→21:27)
[2017-03-16] MEDS: TIOTROPIUM BROMIDE DPI 5 CAP/KIT (18 MCG/CAP) IH SCH (11:45)
--- NOTE | 2017-03-16 11:54 | PDOC PROGRESS REPORT ---
Subjective Progress Note for:: 03/16/17 Subjective:: Patient is upset that she is on a 1 L fluid restriction. Reason For Visit: PNEUMONIA Physical Exam Vital Signs: Temp Pulse Resp BP Pulse Ox 97.4 F 100 20 148/81 H 92 03/16/17 07:15 03/16/17 09:41 03/16/17 09:41 03/16/17 07:15 03/16/17 09:41 Pulse Oximeter Continuous Start: 03/11/17 04: 11 Freq: RTQ4 Status: Active Document 03/16/17 08:00 [facility] (Rec: 03/16/17 10:24 DSH [email or web address]) Pulse Oximetry Assessment Oxygen Saturation (92-100) 96 Oxygen Delivery Method Nasal Cannula Equipment Usage Equipment in Use Continuous SpO2 Machine # 10 Intake & Output 03/15/17 03/16/17 03/17/17 06:59 06:59 06:59 Intake Total 1439 1014 Balance 1439 1014 Weight 69.9 kg General appearance: PRESENT: no acute distress Eye exam: PRESENT: conjunctiva pink. ABSENT: scleral icterus Mouth exam: PRESENT: moist, tongue midline Neck exam: ABSENT: JVD Respiratory exam: PRESENT: rhonchi - Bilateral rhonchi.. ABSENT: rales, wheezes Cardiovascular exam: PRESENT: irregular rhythm. ABSENT: diastolic murmur, rubs , systolic murmur GI/Abdominal exam: PRESENT: normal bowel sounds, soft. ABSENT: distended, guarding, mass, organolmegaly, rebound, tenderness Extremities exam: ABSENT: calf tenderness, clubbing, pedal edema Neurological exam: PRESENT: alert, awake, oriented to person, oriented to place , oriented to time, oriented to situation, CN II-XII grossly intact. ABSENT: motor sensory deficit Psychiatric exam: PRESENT: anxious Skin exam: PRESENT: dry, intact, warm. ABSENT: cyanosis, rash Results Laboratory Results: 03/14/17 06:17 03/15/17 05:49 Impressions: Venous Doppler Study 03/11/17 00:00 IMPRESSION: NO EVIDENCE DVT OR SVT IN EITHER LEG. Chest X-Ray 03/13/17 00:00 IMPRESSION: Small bilateral pleural effusions are identified showing interval increase in size as compared to the previous study. I cannot exclude some associated atelectasis or infiltrate in the lung bases. Other findings as noted above Assessment & Plan - Diagnosis (1) Acute on chronic respiratory failure with hypoxemia Is this a current diagnosis for this admission?: Yes Plan: Secondary to COPD and pneumonia. She is slowly improving. (2) Pneumonia Qualifiers: Pneumonia type: due to unspecified organism Laterality: bilateral Lung location: unspecified part of lung Qualified Code(s): J18.9 - Pneumonia, unspecified organism Is this a current diagnosis for this admission?: Yes Plan: The patient is on cefepime and Levaquin. (3) A-fib Qualifiers: Atrial fibrillation type: chronic Qualified Code(s): I48.2 - Chronic atrial fibrillation Is this a current diagnosis for this admission?: Yes Plan: Patient is rate controlled. Continue with diltiazem and Eliquis. (4) Acute exacerbation of chronic obstructive pulmonary disease Is this a current diagnosis for this admission?: Yes Plan: Continue with prednisone and nebulizers. (5) Hypertension Qualifiers: Hypertension type: essential hypertension Qualified Code(s): I10 - Essential (primary) hypertension Is this a current diagnosis for this admission?: Yes (6) DNR (do not resuscitate) Is this a current diagnosis for this admission?: Yes - Time Time Spent with patient: 25-34 minutes - Inpatient Certification Medical Necessity: Need for IV Antibiotics - Plan Summary Plan Summary: We will relax her fluid restriction to 1.5 L.
[2017-03-16] MEDS: SIMVASTATIN 10 MG TABLET PO SCH (21:27)
[2017-03-17] MEDS: CEFEPIME 2 GM/D5W RTU 2 GM/50 ML RTUPB IV SCH ×2 (01:34→13:56)
[2017-03-17] MEDS: LEVALBUTEROL HCL NEB 1.25 MG/3 ML AMPUL NEB SCH ×4 (02:17→20:10)
[2017-03-17] MEDS: IPRATROPIUM/ALBUTEROL 0.5-2.5 MG/3 ML AMPUL NEB SCH ×4 (02:18→20:17)
[2017-03-17 05:49] LABS: ANION GAP 14 (5-19); BLOOD UREA NITROGEN 54 mg/dL (7-20); CALCIUM 8.6 mg/dL (8.4-10.2); CARBON DIOXIDE 29 mmol/L (22-30); CHLORIDE 104 mmol/L (98-107); CREATININE RESULT 1.36 mg/dL (0.52-1.25); GLUCOSE 138 mg/dL (75-110); SODIUM 146.6 mmol/L (137-145)
[2017-03-17] MEDS: LANSOPRAZOLE 30 MG TAB.RAP.DR PO SCH (06:16)
[2017-03-17 06:21] LABS: POTASSIUM 2.9 mmol/L (3.6-5.0)
[2017-03-17] MEDS ORDERED: POTASSIUM CHLORIDE 10 MEQ TABLET.SA PO ONE (07:00)
[2017-03-17] MEDS: POTASSIUM CHLORIDE 20 MEQ/50 ML RTU IV SCH ×2 (08:57→10:38)
[2017-03-17] MEDS: POTASSIUM CHLORIDE 10 MEQ TABLET.SA PO SCH (09:02)
[2017-03-17] MEDS: LEVOFLOXACIN 500 MG TABLET PO SCH (09:03)
[2017-03-17] MEDS: DILTIAZEM HCL 120 MG CAP.SR.24H PO SCH ×2 (09:03→21:25)
[2017-03-17] MEDS: GUAIFENESIN 600 MG TABLET.SA PO SCH ×2 (09:03→21:25)
[2017-03-17] MEDS: CETIRIZINE 10 MG TABLET PO SCH (09:03)
[2017-03-17] MEDS: NYSTATIN/DEXAMETH/DIPHEN SUSP 120 ML PO SCH ×4 (09:04→21:25)
[2017-03-17] MEDS: LOSARTAN POTASSIUM 50 MG TABLET PO SCH (09:04)
[2017-03-17] MEDS: PREDNISONE 20 MG TABLET PO SCH ×2 (09:04→18:44)
[2017-03-17] MEDS: BUDESONIDE/FORMOTEROL 160-4.5 MCG 60 PUFF/6 GM MDI IH SCH ×2 (09:04→21:25)
[2017-03-17] MEDS: TIOTROPIUM BROMIDE DPI 5 CAP/KIT (18 MCG/CAP) IH SCH (09:04)
[2017-03-17] MEDS: FUROSEMIDE 40 MG TABLET PO SCH ×2 (09:04→18:44)
[2017-03-17] MEDS: APIXABAN 2.5 MG TABLET PO SCH ×2 (09:05→21:25)
[2017-03-17] MEDS: PREDNISOLONE ACETATE 1% OPH SUSP 5 ML OD SCH (09:05)
--- NOTE | 2017-03-17 11:21 | PDOC PROGRESS REPORT ---
Subjective Progress Note for:: 03/17/17 Subjective:: She is still short of breath. Reason For Visit: PNEUMONIA Physical Exam Vital Signs: Temp Pulse Resp BP Pulse Ox 98.0 F 90 14 158/72 H 90 L 03/17/17 07:35 03/17/17 08:38 03/17/17 08:38 03/17/17 07:35 03/17/17 08:38 Pulse Oximeter Continuous Start: 03/11/17 04: 11 Freq: RTQ4 Status: Complete Document 03/16/17 08:00 D[facility] (Rec: 03/16/17 10:24 DSH [email or web address]) Pulse Oximetry Assessment Oxygen Saturation (92-100) 96 Oxygen Delivery Method Nasal Cannula Equipment Usage Equipment in Use Continuous SpO2 Machine # 10 Intake & Output 03/16/17 03/17/17 03/18/17 06:59 06:59 06:59 Intake Total 1014 990 Balance 1014 990 General appearance: PRESENT: no acute distress Eye exam: PRESENT: conjunctiva pink. ABSENT: scleral icterus Mouth exam: PRESENT: moist, tongue midline Neck exam: ABSENT: JVD Respiratory exam: PRESENT: clear to auscultation ian, rhonchi. ABSENT: rales, wheezes Cardiovascular exam: PRESENT: RRR. ABSENT: diastolic murmur, rubs, systolic murmur GI/Abdominal exam: PRESENT: normal bowel sounds, soft. ABSENT: distended, guarding, mass, organolmegaly, rebound, tenderness Extremities exam: ABSENT: calf tenderness, clubbing, pedal edema Neurological exam: PRESENT: alert, awake, oriented to person, oriented to place , oriented to time, oriented to situation, CN II-XII grossly intact. ABSENT: motor sensory deficit Psychiatric exam: PRESENT: appropriate affect Results Laboratory Results: 03/14/17 06:17 03/17/17 05:07 03/17/17 05:07 Sodium 146.6 H Potassium 2.9 L* Chloride 104 Carbon Dioxide 29 Anion Gap 14 BUN 54 H Creatinine 1.36 H Est GFR ( Amer) 44 L Est GFR (Non-Af Amer) 37 L Glucose 138 H Calcium 8.6 Impressions: Venous Doppler Study 03/11/17 00:00 IMPRESSION: NO EVIDENCE DVT OR SVT IN EITHER LEG. Chest X-Ray 03/13/17 00:00 IMPRESSION: Small bilateral pleural effusions are identified showing interval increase in size as compared to the previous study. I cannot exclude some associated atelectasis or infiltrate in the lung bases. Other findings as noted above Assessment & Plan - Diagnosis (1) Acute on chronic respiratory failure with hypoxemia Is this a current diagnosis for this admission?: Yes Plan: Secondary to COPD and pneumonia. She is slowly improving. (2) Pneumonia Qualifiers: Pneumonia type: due to unspecified organism Laterality: bilateral Lung location: unspecified part of lung Qualified Code(s): J18.9 - Pneumonia, unspecified organism Is this a current diagnosis for this admission?: Yes Plan: The patient is on cefepime and Levaquin. (3) A-fib Qualifiers: Atrial fibrillation type: chronic Qualified Code(s): I48.2 - Chronic atrial fibrillation Is this a current diagnosis for this admission?: Yes Plan: Patient is rate controlled. Continue with diltiazem and Eliquis. (4) Acute exacerbation of chronic obstructive pulmonary disease Is this a current diagnosis for this admission?: Yes Plan: Continue with prednisone and nebulizers. (5) Hypertension Qualifiers: Hypertension type: essential hypertension Qualified Code(s): I10 - Essential (primary) hypertension Is this a current diagnosis for this admission?: Yes (6) DNR (do not resuscitate) Is this a current diagnosis for this admission?: Yes - Time Time Spent with patient: 15-24 minutes - Inpatient Certification Medical Necessity: Need for IV Antibiotics
--- NOTE | 2017-03-17 15:01 | PDOC CONSULTATION ---
Consultation Consult Date: 03/15/17 Attending physician:: DARCY LAL Consult reason:: Dyspnea cough pneumonia History of Present Illness Admission Date/PCP: 03/11/17 03:33 DARCY LAL, History of Present Illness: He-year-old female presented to emergency room complaining of 1 week of increasing cough productive of yellow phlegm fevers chills arthralgias and myalgias. She denies any hemoptysis; her PPD status is unknown. she denies history of chronic lung disease as a child or adolescent. She admits to exposure to passive smoke as a child as well as an adult. She denies any significant occupational exposure to potential respiratory toxins. She has no pets and denies any recent travel. She denies angina-like chest pain sleeps on 2 pillows occasional PND occasional nocturnal cough and rare edema. She is unaware of any snoring Past Medical History Cardiac Medical History: Reports: Atrial Fibrillation, Hyperlipidema, Hypertension Denies: Coronary Artery Disease, Myocardial Infarction Pulmonary Medical History: Reports: Asthma - "diminished lung volume", Bronchitis - hx of, Chronic Obstructive Pulmonary Disease (COPD) Denies: Pneumonia EENT Medical History: Denies: Nose, Throat Neurological Medical History: Denies: Multiple Sclerosis, Seizures Endocrine Medical History: Denies: Gestational Diabetes Renal/ Medical History: Denies: Nephrolithiasis Malignancy Medical History: Reports: Skin Cancer GI Medical History: Denies: Crohn's Disease, Hepatitis, Ulcerative Colitis Musculoskeltal Medical History: Reports: Arthritis - mild Skin Medical History: Denies: Psoriasis Psychiatric Medical History: Denies: Depression Traumatic Medical History: Denies: Traumatic Brain Injury Hematology: Denies: Anemia, Sickle Cell Disease, Bleeding Tendencies Infectious Medical History: Denies: Hepatitis B, Hepatitis C Past Surgical History Past Surgical History: Reports: Other - Kyphoplasty Social History Information Source: [facility] Records Lives with: Family Smoking Status: Never Smoker Passive smoke exposure as: Both Frequency of Alcohol Use: Social Hx Recreational Drug Use: No Drugs: None Hx Prescription Drug Abuse: No - Advance Directive Resuscitation Status: Do Not Resuscitate Family History Family History: CAD, COPD, Other - Dementia Parental Family History Reviewed: Yes Children Family History Reviewed: Yes Sibling(s) Family History Reviewed.: Yes Medication/Allergy Home Medications: Acetaminophen [Tylenol 325 mg Tablet] 650 mg PO DAILYP PRN 03/11/17 Apixaban [Eliquis 2.5 mg Tablet] 2.5 mg PO Q12 03/11/17 Budesonide/Formoterol Fumarate [Symbicort 160-4.5 Mcg Inhaler] 1 puff IH Q12 07/23 Cetirizine HCl [Zyrtec 10 mg Tablet] 10 mg PO DAILYP PRN 03/11/17 Diltiazem HCl [Cartia Xt] 120 mg PO Q12 03/11/17 Levalbuterol HCl [Xopenex Neb 1.25 mg/3 ml Ampul] 1.25 mg NEB RTQ6 03/11/17 Losartan Potassium [Cozaar 50 mg Tablet] 50 mg PO DAILY 03/11/17 Omeprazole 20 mg PO Q6AM 03/11/17 Prednisolone Acetate [Pred Forte] 1 drop OD DAILY 03/11/17 Simvastatin [Zocor 20 mg Tablet] 10 mg PO QHS 03/11/17 Tiotropium [place] [Spiriva Respimat] 1 puff IH DAILY 03/11/17 Torsemide [Demadex 20 mg Tablet] 20 mg PO DAILY 03/11/17 Allergies/Adverse Reactions: adhesive Allergy (Unknown, Verified 03/14/17 09:01) lidocaine Allergy (Unknown, Verified 03/14/17 09:01) shellfish derived Allergy (Verified 03/14/17 09:01) NAUSEA & VOMITING Review of Systems ROS unobtainable: Due to mental status Physical Exam Vital Signs: Temp Pulse Resp BP Pulse Ox 98.2 F 114 H 22 H 136/67 H 98 03/15/17 12:32 03/15/17 12:32 03/15/17 12:32 03/15/17 12:32 03/15/17 12:32 Pulse Oximeter Continuous Start: 03/11/17 04: 11 Freq: RTQ4 Status: Active Document 03/15/17 12:00 LDA (Rec: 03/15/17 12:40 LDA [email or web address]) Pulse Oximetry Assessment Oxygen Saturation (92-100) 96 Oxygen Flow Rate (L/min) 2 Oxygen Delivery Method Nasal Cannula Equipment Usage Equipment in Use Continuous SpO2 Machine # 10 Intake & Output 03/14/17 03/15/17 03/16/17 06:59 06:59 06:59 Intake Total 2250 1439 Output Total 1 Balance 2249 1439 Weight 69.9 kg General appearance: PRESENT: disheveled, hard of hearing, obese, well- developed. ABSENT: cooperative, mild distress, morbidly obese, severe distress Head exam: PRESENT: atraumatic, normocephalic Eye exam: PRESENT: conjunctiva pale. ABSENT: conjunctival injection, conjunctiva pink, nystagmus, periorbital swelling, scleral icterus Mouth exam: PRESENT: dry mucosa, neck supple, tongue midline. ABSENT: laceration, moist Neck exam: ABSENT: carotid bruit, JVD, lymphadenopathy, thyromegaly, tracheal deviation, tracheostomy Respiratory exam: PRESENT: crackles, decreased breath sounds, prolonged expiratory phas, rhonchi, symmetrical - egophony r ant chest wall, unlabored, wheezes. ABSENT: accessory muscle use, chest wall tenderness, clear to auscultation ian, retraction, stridor, tachypnea Cardiovascular exam: PRESENT: RRR, +S1, +S2. ABSENT: irregular rhythm, rubs Pulses: PRESENT: normal radial pulses GI/Abdominal exam: PRESENT: normal bowel sounds, soft. ABSENT: distended, guarding, mass, organolmegaly, rebound, tenderness Extremities exam: PRESENT: joint swelling. ABSENT: calf tenderness, clubbing Musculoskeletal exam: ABSENT: deformity, dislocation Neurological exam: PRESENT: awake Skin exam: PRESENT: dry, warm Results Laboratory Results: 03/14/17 06:17 03/15/17 05:49 03/15/17 05:49 Sodium 144.6 Potassium 3.4 L Chloride 105 Carbon Dioxide 25 Anion Gap 15 BUN 45 H Creatinine 1.33 H Est GFR ( Amer) 46 L Est GFR (Non-Af Amer) 38 L Glucose 164 H Calcium 8.6 Impressions: Venous Doppler Study 03/11/17 00:00 IMPRESSION: NO EVIDENCE DVT OR SVT IN EITHER LEG. Chest X-Ray 03/13/17 00:00 IMPRESSION: Small bilateral pleural effusions are identified showing interval increase in size as compared to the previous study. I cannot exclude some associated atelectasis or infiltrate in the lung bases. Other findings as noted above Assessment & Plan - Diagnosis (1) Acute on chronic respiratory failure with hypoxemia Is this a current diagnosis for this admission?: Yes (2) Pneumonia Qualifiers: Pneumonia type: due to unspecified organism Laterality: bilateral Lung location: unspecified part of lung Qualified Code(s): J18.9 - Pneumonia, unspecified organism Is this a current diagnosis for this admission?: Yes (3) A-fib Qualifiers: Atrial fibrillation type: chronic Qualified Code(s): I48.2 - Chronic atrial fibrillation Is this a current diagnosis for this admission?: Yes (4) Pleural effusion Is this a current diagnosis for this admission?: Yes Plan: improving since admission
[2017-03-17] MEDS: SIMVASTATIN 10 MG TABLET PO SCH (21:25)
[2017-03-18] MEDS: IPRATROPIUM/ALBUTEROL 0.5-2.5 MG/3 ML AMPUL NEB SCH ×4 (01:08→20:30)
[2017-03-18] MEDS: LEVALBUTEROL HCL NEB 1.25 MG/3 ML AMPUL NEB SCH ×4 (01:59→20:07)
[2017-03-18] MEDS: CEFEPIME 2 GM/D5W RTU 2 GM/50 ML RTUPB IV SCH (02:20)
[2017-03-18] MEDS: LANSOPRAZOLE 30 MG TAB.RAP.DR PO SCH (05:33)
[2017-03-18 06:10] LABS: ARTERIAL BLOOD BASE EXCESS 8.2 mmol/L; ARTERIAL BLOOD O2 SATURATION 94.6 % (94-98)
[2017-03-18 07:07] LABS: HEMATOCRIT 37.1 % (36.0-47.0); HEMOGLOBIN 12.7 g/dL (12.0-15.5); MEAN CORPUSCULAR HEMOGLOBIN 30.3 pg (27.0-33.4); MEAN CORPUSCULAR HGB CONC 34.1 g/dL (32.0-36.0); MEAN CORPUSCULAR VOLUME 89 fl (80-97); RED BLOOD COUNT 4.17 10^6/uL (3.72-5.28); RED CELL DISTRIBUTION WIDTH 14.6 % (11.5-14.0); WHITE BLOOD COUNT 14.6 10^3/uL (4.0-10.5)
[2017-03-18 07:18] LABS: ANION GAP 10 (5-19); BLOOD UREA NITROGEN 54 mg/dL (7-20); CALCIUM 9.1 mg/dL (8.4-10.2); CARBON DIOXIDE 33 mmol/L (22-30); CHLORIDE 102 mmol/L (98-107); CREATININE RESULT 1.46 mg/dL (0.52-1.25); GLUCOSE 119 mg/dL (75-110); MAGNESIUM 2.5 mg/dL (1.6-2.3); POTASSIUM 3.9 mmol/L (3.6-5.0); SODIUM 144.8 mmol/L (137-145)
[2017-03-18 08:05] LABS: BASOPHILS % (MANUAL) 0 % (0-2); EOSINOPHILS % (MANUAL) 0 % (0-6); LYMPHOCYTES % (MANUAL) 6 % (13-45); TOTAL CELLS COUNTED 100
[2017-03-18 08:06] LABS: ANISOCYTOSIS SLIGHT
--- NOTE | 2017-03-18 08:39 | PDOC PROGRESS REPORT ---
Subjective Progress Note for:: 03/18/17 Subjective:: The patient states to feel slightly better. Her breathing has improved slightly. She was able to get out of bed and go to the bathroom. Reason For Visit: PNEUMONIA Physical Exam Vital Signs: Temp Pulse Resp BP Pulse Ox 97.6 F 90 24 H 135/75 H 100 03/18/17 07:41 03/18/17 07:41 03/18/17 07:41 03/18/17 07:41 03/18/17 07:41 Pulse Oximeter Continuous Start: 03/11/17 04: 11 Freq: RTQ4 Status: Complete Document 03/16/17 08:00 DSH (Rec: 03/16/17 10:24 DSH [email or web address]) Pulse Oximetry Assessment Oxygen Saturation (92-100) 96 Oxygen Delivery Method Nasal Cannula Equipment Usage Equipment in Use Continuous SpO2 Machine # 10 Intake & Output 03/17/17 03/18/17 03/19/17 06:59 06:59 06:59 Intake Total 990 1790 Balance 990 1790 Weight 68.4 kg General appearance: PRESENT: mild distress Head exam: PRESENT: atraumatic Eye exam: PRESENT: conjunctival injection Neck exam: ABSENT: carotid bruit, JVD Respiratory exam: PRESENT: crackles, rhonchi, tachypnea Cardiovascular exam: PRESENT: irregular rhythm, +S1, +S2 GI/Abdominal exam: PRESENT: normal bowel sounds, soft Extremities exam: PRESENT: tenderness Musculoskeletal exam: PRESENT: tenderness Neurological exam: PRESENT: alert, awake Results Laboratory Results: 03/18/17 06:47 03/18/17 06:47 03/18/17 03/18/17 03/18/17 05:50 06:47 06:47 WBC 14.6 H RBC 4.17 Hgb 12.7 Hct 37.1 MCV 89 MCH 30.3 MCHC 34.1 RDW 14.6 H Plt Count 346 Seg Neutrophils % Not Reportable Lymphocytes % Not Reportable Monocytes % Not Reportable Eosinophils % Not Reportable Basophils % Not Reportable Absolute Neutrophils Not Reportable Absolute Lymphocytes Not Reportable Absolute Monocytes Not Reportable Absolute Eosinophils Not Reportable Absolute Basophils Not Reportable Carbonic Acid 1.16 HCO3/H2CO3 Ratio 27:1 ABG pH 7.53 H ABG pCO2 38.4 ABG pO2 64.0 L ABG HCO3 31.4 H ABG O2 Saturation 94.6 ABG Base Excess 8.2 FiO2 2L Sodium 144.8 Potassium 3.9 Chloride 102 Carbon Dioxide 33 H Anion Gap 10 BUN 54 H Creatinine 1.46 H Est GFR ( Amer) 41 L Est GFR (Non-Af Amer) 34 L Glucose 119 H Calcium 9.1 Magnesium 2.5 H Impressions: Venous Doppler Study 03/11/17 00:00 IMPRESSION: NO EVIDENCE DVT OR SVT IN EITHER LEG. Assessment & Plan - Diagnosis (1) Acute on chronic respiratory failure with hypoxemia Is this a current diagnosis for this admission?: Yes Plan: Improving slightly with medications (2) Pneumonia Qualifiers: Pneumonia type: due to unspecified organism Laterality: bilateral Lung location: unspecified part of lung Qualified Code(s): J18.9 - Pneumonia, unspecified organism Is this a current diagnosis for this admission?: Yes Plan: Improved will stop the cefepime (3) A-fib Qualifiers: Atrial fibrillation type: chronic Qualified Code(s): I48.2 - Chronic atrial fibrillation Is this a current diagnosis for this admission?: Yes Plan: We will continue current treatment (4) Acute exacerbation of chronic obstructive pulmonary disease Is this a current diagnosis for this admission?: Yes Plan: Continue steroids and nebulizations (5) Hypertension Qualifiers: Hypertension type: essential hypertension Qualified Code(s): I10 - Essential (primary) hypertension Is this a current diagnosis for this admission?: Yes Plan: Continue current medications
--- NOTE | 2017-03-18 09:16 | RADIOLOGY REPORT (SQ) ---
EXAM DESCRIPTION: CHEST SINGLE VIEW COMPLETED DATE/TIME: 03/18/2017 8:21 am REASON FOR STUDY: resp failure COMPARISON: CT chest 09/19/2016 AP chest 12/01/2015, 03/11/2017, 03/13/2017 EXAM PARAMETERS: NUMBER OF VIEWS: One view. TECHNIQUE: Single frontal radiographic view of the chest acquired. RADIATION DOSE: NA LIMITATIONS: None. FINDINGS: LUNGS AND PLEURA: Minimal bibasilar atelectasis is present with trace left pleural fluid. This is similar compared to 03/13/2017 and 12/01/2015. Stable biapical pleural-parenchymal scarring. No pneumothorax. MEDIASTINUM AND HILAR STRUCTURES: No masses. Contour normal. HEART AND VASCULAR STRUCTURES: Stable mild cardiomegaly BONES: Osteoporotic with thoracic kyphoplasty HARDWARE: None in the chest. OTHER: No other significant finding. IMPRESSION: Minimal bibasilar atelectasis with trace left pleural fluid, similar compared to multipl e previous exams. TECHNICAL DOCUMENTATION: JOB ID: [id number] [employer]- All Rights Reserved
[2017-03-18] MEDS: POTASSIUM CHLORIDE 10 MEQ TABLET.SA PO SCH (09:19)
[2017-03-18] MEDS: LEVOFLOXACIN 500 MG TABLET PO SCH (09:19)
[2017-03-18] MEDS: GUAIFENESIN 600 MG TABLET.SA PO SCH ×2 (09:19→21:26)
[2017-03-18] MEDS: DILTIAZEM HCL 120 MG CAP.SR.24H PO SCH ×2 (09:19→21:27)
[2017-03-18] MEDS: LOSARTAN POTASSIUM 50 MG TABLET PO SCH (09:19)
[2017-03-18] MEDS: BUDESONIDE/FORMOTEROL 160-4.5 MCG 60 PUFF/6 GM MDI IH SCH ×2 (09:20→21:29)
[2017-03-18] MEDS: PREDNISONE 20 MG TABLET PO SCH ×2 (09:20→18:47)
[2017-03-18] MEDS: TIOTROPIUM BROMIDE DPI 5 CAP/KIT (18 MCG/CAP) IH SCH (09:20)
[2017-03-18] MEDS: FUROSEMIDE 40 MG TABLET PO SCH ×2 (09:20→18:46)
[2017-03-18] MEDS: CETIRIZINE 10 MG TABLET PO SCH (09:20)
[2017-03-18] MEDS: PREDNISOLONE ACETATE 1% OPH SUSP 5 ML OD SCH (09:21)
[2017-03-18] MEDS: NYSTATIN/DEXAMETH/DIPHEN SUSP 120 ML PO SCH ×4 (09:21→21:28)
[2017-03-18] MEDS: APIXABAN 2.5 MG TABLET PO SCH ×2 (09:21→21:28)
--- NOTE | 2017-03-18 13:13 | PDOC PROGRESS REPORT ---
Subjective Progress Note for:: 03/18/17 Subjective:: More awake and alert,irritable Reason For Visit: PNEUMONIA Physical Exam Vital Signs: Temp Pulse Resp BP Pulse Ox 97.6 F 94 14 135/75 H 97 03/18/17 07:41 03/18/17 08:55 03/18/17 08:55 03/18/17 07:41 03/18/17 08:55 Pulse Oximeter Continuous Start: 03/11/17 04: 11 Freq: RTQ4 Status: Complete Document 03/16/17 08:00 DSH (Rec: 03/16/17 10:24 DSH [email or web address]) Pulse Oximetry Assessment Oxygen Saturation (92-100) 96 Oxygen Delivery Method Nasal Cannula Equipment Usage Equipment in Use Continuous SpO2 Machine # 10 Intake & Output 03/17/17 03/18/17 03/19/17 06:59 06:59 06:59 Intake Total 990 1790 Balance 990 1790 Weight 68.4 kg General appearance: PRESENT: cooperative, disheveled, thin, well-developed. ABSENT: no acute distress, hard of hearing, mild distress, morbidly obese, obese , severe distress Head exam: PRESENT: atraumatic, normocephalic Eye exam: PRESENT: conjunctiva pale, EOMI. ABSENT: conjunctival injection, conjunctiva pink, nystagmus, periorbital swelling, scleral icterus Mouth exam: PRESENT: dry mucosa, neck supple, tongue midline. ABSENT: laceration, moist Neck exam: ABSENT: carotid bruit, JVD, lymphadenopathy, thyromegaly, tracheal deviation, tracheostomy Respiratory exam: PRESENT: decreased breath sounds, prolonged expiratory phas, rhonchi, symmetrical, wheezes. ABSENT: accessory muscle use, chest wall tenderness, clear to auscultation ian, crackles, rales, retraction, stridor, tachypnea, unlabored Cardiovascular exam: PRESENT: RRR, +S1, +S2. ABSENT: irregular rhythm, rubs Pulses: PRESENT: normal radial pulses GI/Abdominal exam: PRESENT: normal bowel sounds, soft. ABSENT: distended, guarding, mass, organolmegaly, rebound, tenderness Extremities exam: ABSENT: calf tenderness, clubbing, joint swelling Musculoskeletal exam: ABSENT: deformity, dislocation Neurological exam: PRESENT: alert, awake Psychiatric exam: PRESENT: normal mood Skin exam: PRESENT: dry, warm Results Laboratory Results: 03/18/17 06:47 03/18/17 06:47 03/18/17 03/18/17 03/18/17 05:50 06:47 06:47 WBC 14.6 H RBC 4.17 Hgb 12.7 Hct 37.1 MCV 89 MCH 30.3 MCHC 34.1 RDW 14.6 H Plt Count 346 Seg Neutrophils % Not Reportable Lymphocytes % Not Reportable Monocytes % Not Reportable Eosinophils % Not Reportable Basophils % Not Reportable Absolute Neutrophils Not Reportable Absolute Lymphocytes Not Reportable Absolute Monocytes Not Reportable Absolute Eosinophils Not Reportable Absolute Basophils Not Reportable Carbonic Acid 1.16 HCO3/H2CO3 Ratio 27:1 ABG pH 7.53 H ABG pCO2 38.4 ABG pO2 64.0 L ABG HCO3 31.4 H ABG O2 Saturation 94.6 ABG Base Excess 8.2 FiO2 2L Sodium 144.8 Potassium 3.9 Chloride 102 Carbon Dioxide 33 H Anion Gap 10 BUN 54 H Creatinine 1.46 H Est GFR ( Amer) 41 L Est GFR (Non-Af Amer) 34 L Glucose 119 H Calcium 9.1 Magnesium 2.5 H Impressions: Venous Doppler Study 03/11/17 00:00 IMPRESSION: NO EVIDENCE DVT OR SVT IN EITHER LEG. Chest X-Ray 03/18/17 06:00 IMPRESSION: Minimal bibasilar atelectasis with trace left pleural fluid, similar compared to multiple previous exams. Assessment & Plan - Diagnosis (1) Acute on chronic respiratory failure with hypoxemia Is this a current diagnosis for this admission?: Yes Plan: Slowly improving slowly (2) Pneumonia Qualifiers: Pneumonia type: due to unspecified organism Laterality: bilateral Lung location: unspecified part of lung Qualified Code(s): J18.9 - Pneumonia, unspecified organism Is this a current diagnosis for this admission?: Yes Plan: Radiographically unchanged Labs- All tests 24 hr 03/11/17 03/12/17 03/13/17 00:25 06:19 05:07 WBC 13.1 H 17.8 H 13.2 H 03/14/17 03/18/17 06:17 06:47 WBC 12.9 H 14.6 H (3) A-fib Qualifiers: Atrial fibrillation type: chronic Qualified Code(s): I48.2 - Chronic atrial fibrillation Is this a current diagnosis for this admission?: Yes (4) Pleural effusion Is this a current diagnosis for this admission?: Yes Plan: improving since admission We will follow closely
[2017-03-18] MEDS: SIMVASTATIN 10 MG TABLET PO SCH (21:26)
[2017-03-19] MEDS: LEVALBUTEROL HCL NEB 1.25 MG/3 ML AMPUL NEB SCH ×4 (02:17→20:34)
[2017-03-19] MEDS: IPRATROPIUM/ALBUTEROL 0.5-2.5 MG/3 ML AMPUL NEB SCH ×2 (02:17→08:27)
[2017-03-19] MEDS: LANSOPRAZOLE 30 MG TAB.RAP.DR PO SCH (05:19)
--- NOTE | 2017-03-19 08:21 | PDOC PROGRESS REPORT ---
Subjective Progress Note for:: 03/19/17 Subjective:: The patient states to feel better. Her breathing has improved. She can speak in full sentences now. She is not breathing through pursed lips. Discussed again the short-term rehab. The patient apparently finally agrees to go to a short-term rehab after she has discussed the case with her children. Reason For Visit: PNEUMONIA Physical Exam Vital Signs: Temp Pulse Resp BP Pulse Ox 97.8 F 89 20 134/71 H 97 03/19/17 07:58 03/19/17 07:58 03/19/17 07:58 03/19/17 07:58 03/19/17 07:58 Pulse Oximeter Continuous Start: 03/11/17 04: 11 Freq: RTQ4 Status: Complete Document 03/16/17 08:00 DSH (Rec: 03/16/17 10:24 DSH [email or web address]) Pulse Oximetry Assessment Oxygen Saturation (92-100) 96 Oxygen Delivery Method Nasal Cannula Equipment Usage Equipment in Use Continuous SpO2 Machine # 10 Intake & Output 03/18/17 03/19/17 03/20/17 06:59 06:59 06:59 Intake Total 1790 1207 Output Total 0 Balance 1790 1207 Weight 68.4 kg General appearance: PRESENT: mild distress Head exam: PRESENT: atraumatic Eye exam: PRESENT: conjunctiva pink Neck exam: ABSENT: carotid bruit, JVD Respiratory exam: PRESENT: rhonchi Cardiovascular exam: PRESENT: irregular rhythm, +S1, +S2 GI/Abdominal exam: PRESENT: normal bowel sounds, soft Extremities exam: PRESENT: pedal edema, tenderness Musculoskeletal exam: PRESENT: ambulatory Neurological exam: PRESENT: alert, awake Results Laboratory Results: 03/18/17 06:47 03/18/17 06:47 Impressions: Venous Doppler Study 03/11/17 00:00 IMPRESSION: NO EVIDENCE DVT OR SVT IN EITHER LEG. Chest X-Ray 03/18/17 06:00 IMPRESSION: Minimal bibasilar atelectasis with trace left pleural fluid, similar compared to multiple previous exams. Assessment & Plan - Diagnosis (1) Acute on chronic respiratory failure with hypoxemia Is this a current diagnosis for this admission?: Yes Plan: Continue current treatment. Consider start weaning off the prednisone. (2) Pneumonia Qualifiers: Pneumonia type: due to unspecified organism Laterality: bilateral Lung location: unspecified part of lung Qualified Code(s): J18.9 - Pneumonia, unspecified organism Is this a current diagnosis for this admission?: Yes Plan: We will complete 2 weeks of antibiotics (3) A-fib Qualifiers: Atrial fibrillation type: chronic Qualified Code(s): I48.2 - Chronic atrial fibrillation Is this a current diagnosis for this admission?: Yes Plan: Stable continue current medications and anticoagulation (4) Acute exacerbation of chronic obstructive pulmonary disease Is this a current diagnosis for this admission?: Yes Plan: The acute exacerbation has passed. The patient is improving. 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
[2017-03-19] MEDS: APIXABAN 2.5 MG TABLET PO SCH ×2 (09:31→21:08)
[2017-03-19] MEDS: CETIRIZINE 10 MG TABLET PO SCH (09:32)
[2017-03-19] MEDS: FUROSEMIDE 40 MG TABLET PO SCH ×2 (09:32→17:39)
[2017-03-19] MEDS: DILTIAZEM HCL 120 MG CAP.SR.24H PO SCH ×2 (09:33→21:07)
[2017-03-19] MEDS: PREDNISONE 20 MG TABLET PO SCH ×2 (09:36→17:39)
[2017-03-19] MEDS: LOSARTAN POTASSIUM 50 MG TABLET PO SCH (09:37)
[2017-03-19] MEDS: POTASSIUM CHLORIDE 10 MEQ TABLET.SA PO SCH (09:37)
[2017-03-19] MEDS: LEVOFLOXACIN 500 MG TABLET PO SCH (09:38)
[2017-03-19] MEDS: TIOTROPIUM BROMIDE DPI 5 CAP/KIT (18 MCG/CAP) IH SCH (09:39)
[2017-03-19] MEDS: GUAIFENESIN 600 MG TABLET.SA PO SCH ×2 (09:39→21:07)
[2017-03-19] MEDS: BUDESONIDE/FORMOTEROL 160-4.5 MCG 60 PUFF/6 GM MDI IH SCH ×2 (09:40→21:07)
[2017-03-19] MEDS: PREDNISOLONE ACETATE 1% OPH SUSP 5 ML OD SCH (09:41)
[2017-03-19] MEDS: NYSTATIN/DEXAMETH/DIPHEN SUSP 120 ML PO SCH ×4 (09:42→21:07)
--- NOTE | 2017-03-19 16:00 | PDOC PROGRESS REPORT ---
Subjective Progress Note for:: 03/19/17 Subjective:: I am a little better Reason For Visit: PNEUMONIA Physical Exam Vital Signs: Temp Pulse Resp BP Pulse Ox 97.7 F 98 22 H 122/70 100 03/19/17 12:13 03/19/17 12:13 03/19/17 12:13 03/19/17 12:13 03/19/17 12:13 Pulse Oximeter Continuous Start: 03/11/17 04: 11 Freq: RTQ4 Status: Complete Document 03/16/17 08:00 DSH (Rec: 03/16/17 10:24 DSH [email or web address]) Pulse Oximetry Assessment Oxygen Saturation (92-100) 96 Oxygen Delivery Method Nasal Cannula Equipment Usage Equipment in Use Continuous SpO2 Machine # 10 Intake & Output 03/18/17 03/19/17 03/20/17 06:59 06:59 06:59 Intake Total 1790 1207 459 Output Total 0 Balance 1790 1207 459 Weight 68.4 kg General appearance: PRESENT: no acute distress, cooperative, disheveled, thin, well-developed. ABSENT: mild distress, morbidly obese, obese, severe distress Head exam: PRESENT: atraumatic, normocephalic Eye exam: PRESENT: conjunctiva pale, EOMI. ABSENT: conjunctival injection, conjunctiva pink, nystagmus, periorbital swelling, scleral icterus Mouth exam: PRESENT: dry mucosa, neck supple, tongue midline. ABSENT: laceration, moist Neck exam: ABSENT: carotid bruit, JVD, lymphadenopathy, thyromegaly, tracheal deviation, tracheostomy Respiratory exam: PRESENT: decreased breath sounds, prolonged expiratory phas, rhonchi, symmetrical, unlabored, wheezes. ABSENT: accessory muscle use, chest wall tenderness, clear to auscultation ian, crackles, rales, retraction, stridor , tachypnea Cardiovascular exam: PRESENT: RRR, +S1, +S2. ABSENT: irregular rhythm, rubs Pulses: PRESENT: normal radial pulses GI/Abdominal exam: PRESENT: normal bowel sounds, soft. ABSENT: distended, guarding, mass, organolmegaly, rebound, tenderness Extremities exam: ABSENT: calf tenderness, clubbing, joint swelling Musculoskeletal exam: PRESENT: ambulatory. ABSENT: deformity, dislocation, tenderness Neurological exam: PRESENT: alert, awake Psychiatric exam: PRESENT: normal mood Skin exam: PRESENT: dry, warm Results Laboratory Results: 03/18/17 06:47 03/18/17 06:47 Impressions: Venous Doppler Study 03/11/17 00:00 IMPRESSION: NO EVIDENCE DVT OR SVT IN EITHER LEG. Chest X-Ray 03/18/17 06:00 IMPRESSION: Minimal bibasilar atelectasis with trace left pleural fluid, similar compared to multiple previous exams. Assessment & Plan - Diagnosis (1) Acute on chronic respiratory failure with hypoxemia Is this a current diagnosis for this admission?: No (2) Pneumonia Qualifiers: Pneumonia type: due to unspecified organism Laterality: bilateral Lung location: unspecified part of lung Qualified Code(s): J18.9 - Pneumonia, unspecified organism Is this a current diagnosis for this admission?: Yes Plan: Radiographically improving Labs- All tests 24 hr 03/11/17 03/12/17 03/13/17 00:25 06:19 05:07 WBC 13.1 H 17.8 H 13.2 H 03/14/17 03/18/17 06:17 06:47 WBC 12.9 H 14.6 H (3) A-fib Qualifiers: Atrial fibrillation type: chronic Qualified Code(s): I48.2 - Chronic atrial fibrillation Is this a current diagnosis for this admission?: Yes (4) Pleural effusion Is this a current diagnosis for this admission?: Yes Plan: decreased
[2017-03-19] MEDS: SIMVASTATIN 10 MG TABLET PO SCH (21:07)
[2017-03-20] MEDS: LEVALBUTEROL HCL NEB 1.25 MG/3 ML AMPUL NEB SCH ×4 (01:45→19:41)
[2017-03-20] MEDS: LANSOPRAZOLE 30 MG TAB.RAP.DR PO SCH (05:08)
[2017-03-20 06:56] LABS: HEMATOCRIT 35.7 % (36.0-47.0); HEMOGLOBIN 11.9 g/dL (12.0-15.5); MEAN CORPUSCULAR HEMOGLOBIN 29.5 pg (27.0-33.4); MEAN CORPUSCULAR HGB CONC 33.2 g/dL (32.0-36.0); MEAN CORPUSCULAR VOLUME 89 fl (80-97); RED BLOOD COUNT 4.01 10^6/uL (3.72-5.28); RED CELL DISTRIBUTION WIDTH 14.5 % (11.5-14.0); WHITE BLOOD COUNT 14.4 10^3/uL (4.0-10.5)
[2017-03-20 07:05] LABS: ALANINE AMINOTRANSFERASE 43 U/L (9-52); ALKALINE PHOSPHATASE 59 U/L (38-126); ANION GAP 10 (5-19); ASPARTATE AMINO TRANSFERASE 19 U/L (14-36); BILIRUBIN,DIRECT 0.4 mg/dL (0.0-0.4); BILIRUBIN,TOTAL 0.7 mg/dL (0.2-1.3); BLOOD UREA NITROGEN 56 mg/dL (7-20); CALCIUM 8.8 mg/dL (8.4-10.2); CARBON DIOXIDE 33 mmol/L (22-30); CHLORIDE 97 mmol/L (98-107); CREATININE RESULT 1.77 mg/dL (0.52-1.25); GLUCOSE 121 mg/dL (75-110); MAGNESIUM 2.4 mg/dL (1.6-2.3); POTASSIUM 3.6 mmol/L (3.6-5.0); SODIUM 140.1 mmol/L (137-145); TOTAL PROTEIN 5.5 g/dL (6.3-8.2)
[2017-03-20 07:36] LABS: BAND NEUTROPHILS % (MANUAL) 2 % (3-5); BASOPHILS % (MANUAL) 0 % (0-2); EOSINOPHILS % (MANUAL) 0 % (0-6); HYPOCHROMASIA 1+; LYMPHOCYTES % (MANUAL) 7 % (13-45); POLYCHROMASIA SLIGHT; TOTAL CELLS COUNTED 100; TOXIC GRANULATION SLIGHT; TOXIC VACUOLATION PRESENT
--- NOTE | 2017-03-20 08:54 | PDOC PROGRESS REPORT ---
Subjective Progress Note for:: 03/20/17 Subjective:: The patient states to feel better. Her breathing has improved slightly. She denies any cough. Her chest x-ray was slightly improved. Discussed the need for rehab. The patient is willing to go to a short-term rehab. Reason For Visit: PNEUMONIA Physical Exam Vital Signs: Temp Pulse Resp BP Pulse Ox 97.9 F 84 14 131/70 H 95 03/20/17 07:07 03/20/17 08:04 03/20/17 08:04 03/20/17 07:07 03/20/17 08:04 Pulse Oximeter Continuous Start: 03/11/17 04: 11 Freq: RTQ4 Status: Complete Document 03/16/17 08:00 DSH (Rec: 03/16/17 10:24 DSH [email or web address]) Pulse Oximetry Assessment Oxygen Saturation (92-100) 96 Oxygen Delivery Method Nasal Cannula Equipment Usage Equipment in Use Continuous SpO2 Machine # 10 Intake & Output 03/19/17 03/20/17 03/21/17 06:59 06:59 06:59 Intake Total 1207 1344 Output Total 0 Balance 1207 1344 General appearance: PRESENT: mild distress Head exam: PRESENT: atraumatic Eye exam: PRESENT: conjunctiva pink Neck exam: ABSENT: carotid bruit, JVD Respiratory exam: PRESENT: rhonchi Cardiovascular exam: PRESENT: irregular rhythm, +S1, +S2 Pulses: PRESENT: +1 pedal pulses bilateral GI/Abdominal exam: PRESENT: normal bowel sounds, soft Extremities exam: PRESENT: pedal edema Musculoskeletal exam: PRESENT: tenderness Neurological exam: PRESENT: awake Results Laboratory Results: 03/20/17 05:59 03/20/17 05:59 03/20/17 03/20/17 05:59 05:59 WBC 14.4 H RBC 4.01 Hgb 11.9 L Hct 35.7 L MCV 89 MCH 29.5 MCHC 33.2 RDW 14.5 H Plt Count 279 Seg Neutrophils % Not Reportable Lymphocytes % Not Reportable Monocytes % Not Reportable Eosinophils % Not Reportable Basophils % Not Reportable Absolute Neutrophils Not Reportable Absolute Lymphocytes Not Reportable Absolute Monocytes Not Reportable Absolute Eosinophils Not Reportable Absolute Basophils Not Reportable Sodium 140.1 Potassium 3.6 Chloride 97 L Carbon Dioxide 33 H Anion Gap 10 BUN 56 H Creatinine 1.77 H Est GFR ( Amer) 33 L Est GFR (Non-Af Amer) 27 L Glucose 121 H Calcium 8.8 Magnesium 2.4 H Total Bilirubin 0.7 AST 19 ALT 43 Alkaline Phosphatase 59 Total Protein 5.5 L Albumin 3.0 L Impressions: Venous Doppler Study 03/11/17 00:00 IMPRESSION: NO EVIDENCE DVT OR SVT IN EITHER LEG. Chest X-Ray 03/18/17 06:00 IMPRESSION: Minimal bibasilar atelectasis with trace left pleural fluid, similar compared to multiple previous exams. Assessment & Plan - Diagnosis (1) Acute on chronic respiratory failure with hypoxemia Is this a current diagnosis for this admission?: No Plan: Continue current treatment. Consider start weaning off the prednisone. (2) Pneumonia Qualifiers: Pneumonia type: due to unspecified organism Laterality: bilateral Lung location: unspecified part of lung Qualified Code(s): J18.9 - Pneumonia, unspecified organism Is this a current diagnosis for this admission?: Yes Plan: We will complete 2 weeks of antibiotics (3) A-fib Qualifiers: Atrial fibrillation type: chronic Qualified Code(s): I48.2 - Chronic atrial fibrillation Is this a current diagnosis for this admission?: Yes Plan: Stable continue current medications and anticoagulation (4) Acute exacerbation of chronic obstructive pulmonary disease Is this a current diagnosis for this admission?: Yes Plan: The acute exacerbation has passed. The patient is improving. 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 Will reduce Lasix to once a day
[2017-03-20] MEDS: DILTIAZEM HCL 120 MG CAP.SR.24H PO SCH ×2 (09:25→21:40)
[2017-03-20] MEDS: PREDNISONE 20 MG TABLET PO SCH ×2 (09:25→17:20)
[2017-03-20] MEDS: LEVOFLOXACIN 500 MG TABLET PO SCH (09:26)
[2017-03-20] MEDS: LOSARTAN POTASSIUM 50 MG TABLET PO SCH (09:27)
[2017-03-20] MEDS: FUROSEMIDE 40 MG TABLET PO SCH (09:27)
[2017-03-20] MEDS: POTASSIUM CHLORIDE 10 MEQ TABLET.SA PO SCH (09:28)
[2017-03-20] MEDS: CETIRIZINE 10 MG TABLET PO SCH (09:29)
[2017-03-20] MEDS: GUAIFENESIN 600 MG TABLET.SA PO SCH ×2 (09:29→21:41)
[2017-03-20] MEDS: PREDNISOLONE ACETATE 1% OPH SUSP 5 ML OD SCH (09:30)
[2017-03-20] MEDS: NYSTATIN/DEXAMETH/DIPHEN SUSP 120 ML PO SCH ×4 (09:31→21:43)
[2017-03-20] MEDS: BUDESONIDE/FORMOTEROL 160-4.5 MCG 60 PUFF/6 GM MDI IH SCH ×2 (09:31→21:43)
[2017-03-20] MEDS: TIOTROPIUM BROMIDE DPI 5 CAP/KIT (18 MCG/CAP) IH SCH (09:31)
[2017-03-20] MEDS: APIXABAN 2.5 MG TABLET PO SCH ×2 (09:32→21:42)
[2017-03-20] MEDS: SIMVASTATIN 10 MG TABLET PO SCH (21:41)
[2017-03-21] MEDS: LEVALBUTEROL HCL NEB 1.25 MG/3 ML AMPUL NEB SCH ×2 (01:32→08:28)
[2017-03-21] MEDS: LANSOPRAZOLE 30 MG TAB.RAP.DR PO SCH (05:17)
[2017-03-21 06:19] LABS: ANION GAP 8 (5-19); BLOOD UREA NITROGEN 60 mg/dL (7-20); CALCIUM 8.9 mg/dL (8.4-10.2); CARBON DIOXIDE 34 mmol/L (22-30); CHLORIDE 97 mmol/L (98-107); CREATININE RESULT 1.64 mg/dL (0.52-1.25); GLUCOSE 130 mg/dL (75-110); SODIUM 139.2 mmol/L (137-145)
[2017-03-21 06:21] LABS: POTASSIUM 3.9 mmol/L (3.6-5.0)
[2017-03-21 07:55] VITALS: BP 141/95
[2017-03-21] MEDS ORDERED: PREDNISONE 10 MG TABLET PO SCH (08:29)
--- NOTE | 2017-03-21 08:40 | PDOC DISCHARGE SUMMARY ---
General - Admit/Disc Date/PCP Admission Date/Primary Care Provider: 03/11/17 03:33 DARCY LAL, Discharge Date: 03/21/17 - Discharge Diagnosis (1) Acute on chronic respiratory failure with hypoxemia Is this a current diagnosis for this admission?: Yes Summary: The acute phase of COPD has resolved. The patient is presently in her chronic state. We will continue slowly wean off the p.o. steroids (2) Pneumonia Is this a current diagnosis for this admission?: Yes Summary: Resolved continue current nebulization treatments and incentive spirometry (3) A-fib Is this a current diagnosis for this admission?: Yes Summary: Stable continue current medications (4) Acute exacerbation of chronic obstructive pulmonary disease Is this a current diagnosis for this admission?: Yes (5) Hypertension Is this a current diagnosis for this admission?: Yes (6) Acute renal failure Is this a current diagnosis for this admission?: Yes Summary: Improved with readjustment of diuretics (7) DNR (do not resuscitate) Is this a current diagnosis for this admission?: Yes - Additional Information Resuscitation Status: Do Not Resuscitate Discharge Diet: As Tolerated Discharge Activity: Activity As Tolerated, Weigh Daily Home Medications: Acetaminophen [Tylenol 325 mg Tablet] 650 mg PO DAILYP PRN 03/11/17 Apixaban [Eliquis 2.5 mg Tablet] 2.5 mg PO Q12 03/11/17 Budesonide/Formoterol Fumarate [Symbicort 160-4.5 Mcg Inhaler] 1 puff IH Q12 07/23 Cetirizine HCl [Zyrtec 10 mg Tablet] 10 mg PO DAILYP PRN 03/11/17 Diltiazem HCl [Cartia Xt] 120 mg PO Q12 03/11/17 Levalbuterol HCl [Xopenex Neb 1.25 mg/3 ml Ampul] 1.25 mg NEB RTQ6 03/11/17 Losartan Potassium [Cozaar 50 mg Tablet] 50 mg PO DAILY 03/11/17 Omeprazole 20 mg PO Q6AM 03/11/17 Prednisolone Acetate [Pred Forte] 1 drop OD DAILY 03/11/17 Simvastatin [Zocor 20 mg Tablet] 10 mg PO QHS 03/11/17 Tiotropium [place] [Spiriva Respimat] 1 puff IH DAILY 03/11/17 Torsemide [Demadex 20 mg Tablet] 20 mg PO DAILY 03/11/17 Acetaminophen [Tylenol 325 mg Tablet] 650 mg PO Q4HP PRN tablet 03/21/17 Potassium Chloride [Klor-Con 10 Meq Tablet.sa] 10 meq PO DAILY tablet.sa Prednisone [Deltasone 20 mg Tablet] 10 mg PO BID #60 tablet 03/21/17 History of Present Illness History of Present Illness: NISH CALDERON is a 86 year old female Hospital Course Hospital Course: The patient was admitted with an acute exacerbation of COPD and pneumonia. She did quite well after several days her symptomatology has improved slowly. Unfortunately because of chronic symptoms and deconditioning it has been discussed with the patient the need to continue with physical therapy and respiratory therapy. The patient was seen by the pulmonology with recommendation for continue nebulizations. She has completed the IV and p.o. antibiotics. Her chest x-ray has improved significantly. Her respiratory status has improved significantly. Physical Exam Vital Signs: Temp Pulse Resp BP Pulse Ox 97.9 F 87 18 141/95 H 98 03/21/17 07:17 03/21/17 07:17 03/21/17 07:17 03/21/17 07:17 03/21/17 07:17 Pulse Oximeter Continuous Start: 03/11/17 04: 11 Freq: RTQ4 Status: Complete Document 03/16/17 08:00 DSH (Rec: 03/16/17 10:24 DSH [email or web address]) Pulse Oximetry Assessment Oxygen Saturation (92-100) 96 Oxygen Delivery Method Nasal Cannula Equipment Usage Equipment in Use Continuous SpO2 Machine # 10 Intake & Output 03/20/17 03/21/17 03/22/17 06:59 06:59 06:59 Intake Total 1344 603 Output Total 0 Balance 1344 603 General appearance: PRESENT: mild distress Head exam: PRESENT: atraumatic Eye exam: PRESENT: conjunctiva pink Neck exam: ABSENT: carotid bruit, JVD Respiratory exam: PRESENT: rhonchi. ABSENT: wheezes Cardiovascular exam: PRESENT: irregular rhythm, +S1, +S2 Pulses: PRESENT: +1 pedal pulses bilateral GI/Abdominal exam: PRESENT: normal bowel sounds, soft Extremities exam: PRESENT: tenderness Musculoskeletal exam: PRESENT: tenderness Neurological exam: PRESENT: alert, awake Results Laboratory Results: 03/20/17 05:59 03/21/17 05:17 03/21/17 05:17 Sodium 139.2 Potassium 3.9 Chloride 97 L Carbon Dioxide 34 H Anion Gap 8 BUN 60 H Creatinine 1.64 H Est GFR ( Amer) 36 L Est GFR (Non-Af Amer) 30 L Glucose 130 H Calcium 8.9 Impressions: Venous Doppler Study 03/11/17 00:00 IMPRESSION: NO EVIDENCE DVT OR SVT IN EITHER LEG. Chest X-Ray 03/18/17 06:00 IMPRESSION: Minimal bibasilar atelectasis with trace left pleural fluid, similar compared to multiple previous exams. Plan Time Spent: Greater than 30 Minutes
[2017-03-21] MEDS ORDERED: LEVALBUTEROL HCL NEB 1.25 MG/3 ML AMPUL NEB PRN (09:00)
[2017-03-21] MEDS: LOSARTAN POTASSIUM 50 MG TABLET PO SCH (09:50)
[2017-03-21] MEDS: BUDESONIDE/FORMOTEROL 160-4.5 MCG 60 PUFF/6 GM MDI IH SCH (09:50)
[2017-03-21] MEDS: POTASSIUM CHLORIDE 10 MEQ TABLET.SA PO SCH (09:50)
[2017-03-21] MEDS: CETIRIZINE 10 MG TABLET PO SCH (09:51)
[2017-03-21] MEDS: FUROSEMIDE 40 MG TABLET PO SCH (09:51)
[2017-03-21] MEDS: DILTIAZEM HCL 120 MG CAP.SR.24H PO SCH (09:51)
[2017-03-21] MEDS: PREDNISOLONE ACETATE 1% OPH SUSP 5 ML OD SCH (09:52)
[2017-03-21] MEDS: TIOTROPIUM BROMIDE DPI 5 CAP/KIT (18 MCG/CAP) IH SCH (09:52)
[2017-03-21] MEDS: NYSTATIN/DEXAMETH/DIPHEN SUSP 120 ML PO SCH (09:53)
[2017-03-21] MEDS: APIXABAN 2.5 MG TABLET PO SCH (09:53)
[2017-03-21] MEDS ORDERED: GUAIFENESIN 600 MG TABLET.SA PO SCH (10:00)
--- NOTE | 2017-03-21 12:57 | PDOC PROGRESS REPORT ---
Subjective Progress Note for:: 03/21/17 Subjective:: I am leaving here was walking around this morning and I am going to go Reason For Visit: PNEUMONIA Physical Exam Vital Signs: Temp Pulse Resp BP Pulse Ox 97.9 F 84 14 141/95 H 99 03/21/17 07:17 03/21/17 08:28 03/21/17 08:28 03/21/17 07:17 03/21/17 08:28 Pulse Oximeter Continuous Start: 03/11/17 04: 11 Freq: RTQ4 Status: Complete Document 03/16/17 08:00 DSH (Rec: 03/16/17 10:24 DSH [email or web address]) Pulse Oximetry Assessment Oxygen Saturation (92-100) 96 Oxygen Delivery Method Nasal Cannula Equipment Usage Equipment in Use Continuous SpO2 Machine # 10 Intake & Output 03/20/17 03/21/17 03/22/17 06:59 06:59 06:59 Intake Total 1344 603 459 Output Total 0 Balance 1344 603 459 General appearance: PRESENT: no acute distress, cooperative, disheveled, well- developed. ABSENT: mild distress, morbidly obese, obese, severe distress Head exam: PRESENT: atraumatic, normocephalic Eye exam: PRESENT: conjunctiva pale, EOMI. ABSENT: conjunctival injection, conjunctiva pink, nystagmus, periorbital swelling, scleral icterus Mouth exam: PRESENT: dry mucosa, neck supple, tongue midline. ABSENT: laceration, moist Neck exam: ABSENT: carotid bruit, JVD, lymphadenopathy, thyromegaly, tracheal deviation, tracheostomy Respiratory exam: PRESENT: decreased breath sounds, prolonged expiratory phas, rhonchi, symmetrical, unlabored, wheezes. ABSENT: accessory muscle use, chest wall tenderness, clear to auscultation ian, crackles, rales, retraction, stridor , tachypnea Cardiovascular exam: PRESENT: RRR, +S1, +S2. ABSENT: irregular rhythm, rubs Pulses: PRESENT: normal radial pulses GI/Abdominal exam: PRESENT: normal bowel sounds, soft. ABSENT: distended, guarding, mass, organolmegaly, rebound, tenderness Extremities exam: ABSENT: calf tenderness, clubbing, joint swelling Musculoskeletal exam: PRESENT: ambulatory. ABSENT: deformity, dislocation Neurological exam: PRESENT: alert, awake Psychiatric exam: PRESENT: normal mood Skin exam: PRESENT: dry, warm Results Laboratory Results: 03/20/17 05:59 03/21/17 05:17 03/21/17 05:17 Sodium 139.2 Potassium 3.9 Chloride 97 L Carbon Dioxide 34 H Anion Gap 8 BUN 60 H Creatinine 1.64 H Est GFR ( Amer) 36 L Est GFR (Non-Af Amer) 30 L Glucose 130 H Calcium 8.9 Impressions: Venous Doppler Study 03/11/17 00:00 IMPRESSION: NO EVIDENCE DVT OR SVT IN EITHER LEG. Chest X-Ray 03/18/17 06:00 IMPRESSION: Minimal bibasilar atelectasis with trace left pleural fluid, similar compared to multiple previous exams. Assessment & Plan - Diagnosis (1) Acute on chronic respiratory failure with hypoxemia Is this a current diagnosis for this admission?: Yes Plan: At or near baseline on her way to rehab center (2) Pneumonia Qualifiers: Pneumonia type: due to unspecified organism Laterality: bilateral Lung location: unspecified part of lung Qualified Code(s): J18.9 - Pneumonia, unspecified organism Is this a current diagnosis for this admission?: No (3) A-fib Qualifiers: Atrial fibrillation type: chronic Qualified Code(s): I48.2 - Chronic atrial fibrillation Is this a current diagnosis for this admission?: Yes Plan: Ventricular response well-controlled even during exercise (4) Pleural effusion Is this a current diagnosis for this admission?: Yes Plan: decreased
--- NOTE | 2017-03-21 12:59 | PDOC PROGRESS REPORT ---
Subjective Progress Note for:: 03/20/17 Subjective:: I am waiting for a bed Reason For Visit: PNEUMONIA Physical Exam Vital Signs: Temp Pulse Resp BP Pulse Ox 97.9 F 84 14 141/95 H 99 03/21/17 07:17 03/21/17 08:28 03/21/17 08:28 03/21/17 07:17 03/21/17 08:28 Pulse Oximeter Continuous Start: 03/11/17 04: 11 Freq: RTQ4 Status: Complete Document 03/16/17 08:00 DSH (Rec: 03/16/17 10:24 DSH [email or web address]) Pulse Oximetry Assessment Oxygen Saturation (92-100) 96 Oxygen Delivery Method Nasal Cannula Equipment Usage Equipment in Use Continuous SpO2 Machine # 10 Intake & Output 03/20/17 03/21/17 03/22/17 06:59 06:59 06:59 Intake Total 1344 603 459 Output Total 0 Balance 1344 603 459 General appearance: PRESENT: no acute distress, cooperative, disheveled, thin, well-developed. ABSENT: mild distress, morbidly obese, obese, severe distress Head exam: PRESENT: atraumatic, normocephalic Eye exam: PRESENT: conjunctiva pale, EOMI. ABSENT: conjunctival injection, conjunctiva pink, nystagmus, periorbital swelling, scleral icterus Mouth exam: PRESENT: dry mucosa, neck supple, tongue midline. ABSENT: laceration, moist Neck exam: ABSENT: carotid bruit, JVD, lymphadenopathy, thyromegaly, tracheal deviation, tracheostomy Respiratory exam: PRESENT: decreased breath sounds, prolonged expiratory phas, rhonchi, symmetrical, unlabored, wheezes. ABSENT: accessory muscle use, chest wall tenderness, clear to auscultation ian, crackles, retraction, stridor, tachypnea Cardiovascular exam: PRESENT: RRR, +S1, +S2. ABSENT: irregular rhythm, rubs Pulses: PRESENT: normal radial pulses GI/Abdominal exam: PRESENT: normal bowel sounds, soft. ABSENT: distended, guarding, mass, organolmegaly, rebound, tenderness Extremities exam: ABSENT: calf tenderness, clubbing, joint swelling Musculoskeletal exam: PRESENT: ambulatory. ABSENT: deformity, dislocation Neurological exam: PRESENT: alert, awake Psychiatric exam: PRESENT: normal mood Skin exam: PRESENT: dry, warm Results Laboratory Results: 03/20/17 05:59 03/21/17 05:17 03/21/17 05:17 Sodium 139.2 Potassium 3.9 Chloride 97 L Carbon Dioxide 34 H Anion Gap 8 BUN 60 H Creatinine 1.64 H Est GFR ( Amer) 36 L Est GFR (Non-Af Amer) 30 L Glucose 130 H Calcium 8.9 Impressions: Venous Doppler Study 03/11/17 00:00 IMPRESSION: NO EVIDENCE DVT OR SVT IN EITHER LEG. Chest X-Ray 03/18/17 06:00 IMPRESSION: Minimal bibasilar atelectasis with trace left pleural fluid, similar compared to multiple previous exams. Assessment & Plan - Diagnosis (1) Acute on chronic respiratory failure with hypoxemia Is this a current diagnosis for this admission?: Yes Plan: Significantly improved (2) Pneumonia Qualifiers: Pneumonia type: due to unspecified organism Laterality: bilateral Lung location: unspecified part of lung Qualified Code(s): J18.9 - Pneumonia, unspecified organism Is this a current diagnosis for this admission?: No (3) A-fib Qualifiers: Atrial fibrillation type: chronic Qualified Code(s): I48.2 - Chronic atrial fibrillation Is this a current diagnosis for this admission?: Yes Plan: Ventricular response well-controlled even during exercise (4) Pleural effusion Is this a current diagnosis for this admission?: Yes Plan: decreasing
== END 2017-03-21 12:39 | DRG 193 ==
LOC: ER 00:12 → EH 03:33 → 3S 19:37
PROVIDERS: ADMIT Family Medicine; ATTEND Family Medicine
PROC: 3E0F73Z Introduction of Anti-inflammatory into Respiratory Tract, Via Natural or Artificial Opening (ICD-10-PCS; principal; 2017-03-11)
DX: J18.9 Pneumonia, unspecified organism (principal); J96.21 Acute and chronic respiratory failure with hypoxia; J44.1 Chronic obstructive pulmonary disease with (acute) exacerbation; J44.0 Chronic obstructive pulmonary disease with (acute) lower respiratory infection; N17.9 Acute kidney failure, unspecified; J90 Pleural effusion, not elsewhere classified; I48.2 Chronic atrial fibrillation; E87.6 Hypokalemia; Z99.81 Dependence on supplemental oxygen; Z66 Do not resuscitate; I10 Essential (primary) hypertension; E78.5 Hyperlipidemia, unspecified; M19.90 Unspecified osteoarthritis, unspecified site; Z82.49 Family history of ischemic heart disease and other diseases of the circulatory system; Z82.5 Family history of asthma and other chronic lower respiratory diseases; Z91.013 Allergy to seafood; Z79.02 Long term (current) use of antithrombotics/antiplatelets; Z79.51 Long term (current) use of inhaled steroids
CPT/HCPCS: 36415; 71010; 71020; 80048; 80053; 81001; 82550; 82803; 83605; 83735; 84484; 85025; 85610; 87040; 87070; 87086; 87205; 87804; 93005; 93010; 93970; 94762; 94799; 96365; 96366; 96367; 96375; 99285; G8978-GP; G8979-GP; J0692; J1956; J2930; J3370; J3475; J3480; J3490; J7030; J7512; J7620

== ENCOUNTER → 2017-08-05 | Outpatient (CLI) | payer MEDICARE ==
[2017-08-05 14:01] LABS: ABSOLUTE BASOPHILS # (AUTO) 0.1 10^3/uL (0.0-0.2); ABSOLUTE EOSINOPHILS # (AUTO) 0.2 10^3/uL (0.0-0.6); ABSOLUTE LYMPHOCYTES (AUTO) 1.3 10^3/uL (0.5-4.7); ABSOLUTE MONOCYTES (AUTO) 1.1 10^3/uL (0.1-1.4); ABSOLUTE NEUT (AUTO) 4.1 10^3/uL (1.7-8.2); BASOPHILS % (AUTO) 0.9 % (0-2); EOSINOPHILS % (AUTO) 2.5 % (0-6); HEMATOCRIT 35.7 % (36.0-47.0); MEAN CORPUSCULAR HGB CONC 33.5 g/dL (32.0-36.0); MEAN CORPUSCULAR VOLUME 87 fl (80-97); PLATELET COUNT 305 10^3/uL (150-450); RED BLOOD COUNT 4.12 10^6/uL (3.72-5.28); RED CELL DISTRIBUTION WIDTH 14.6 % (11.5-14.0); SEGMENTED NEUTROPHILS % (AUTO) 61.6 % (42-78); TOTAL CELLS COUNTED % (AUTO) 100 %; WHITE BLOOD COUNT 6.7 10^3/uL (4.0-10.5)
[2017-08-05 14:16] LABS: ALANINE AMINOTRANSFERASE 38 U/L (9-52); ALKALINE PHOSPHATASE 104 U/L (38-126); ANION GAP 15 (5-19); ASPARTATE AMINO TRANSFERASE 30 U/L (14-36); BILIRUBIN,DIRECT 0.4 mg/dL (0.0-0.4); BILIRUBIN,TOTAL 0.5 mg/dL (0.2-1.3); BLOOD UREA NITROGEN 36 mg/dL (7-20); CARBON DIOXIDE 28 mmol/L (22-30); CHLORIDE 101 mmol/L (98-107); GLUCOSE 98 mg/dL (75-110); POTASSIUM 4.3 mmol/L (3.6-5.0); SODIUM 143.6 mmol/L (137-145); TOTAL PROTEIN 6.8 g/dL (6.3-8.2)
== END ==
LOC: OD 12:29
PROVIDERS: ATTEND Physician Assistant Medical
DX: R55 Syncope and collapse (principal); R42 Dizziness and giddiness; R06.02 Shortness of breath
CPT/HCPCS: 36415; 80053; 83735; 85025

== ENCOUNTER → 2017-11-12 | Outpatient (CLI) | payer MEDICARE ==
[2017-11-12 12:14] LABS: ANION GAP 14 (5-19); BLOOD UREA NITROGEN 44 mg/dL (7-20); CALCIUM 9.3 mg/dL (8.4-10.2); CARBON DIOXIDE 28 mmol/L (22-30); CHLORIDE 103 mmol/L (98-107); GLUCOSE 79 mg/dL (75-110)
== END ==
LOC: OD 11:18
PROVIDERS: ATTEND Internal Medicine
DX: N19 Unspecified kidney failure (principal); E83.42 Hypomagnesemia; E87.6 Hypokalemia
CPT/HCPCS: 36415; 80048; 83735

== ENCOUNTER → 2018-03-04 | Outpatient (CLI) | payer MEDICARE ==
[2018-03-04 15:39] LABS: ANION GAP 11 (5-19); BLOOD UREA NITROGEN 49 mg/dL (7-20); CALCIUM 9.8 mg/dL (8.4-10.2); CARBON DIOXIDE 31 mmol/L (22-30); CHLORIDE 100 mmol/L (98-107); GLUCOSE 87 mg/dL (75-110); POTASSIUM 5.3 mmol/L (3.6-5.0); SODIUM 141.7 mmol/L (137-145)
== END ==
LOC: OD 14:36
PROVIDERS: ATTEND Internal Medicine
DX: N19 Unspecified kidney failure (principal)
CPT/HCPCS: 36415; 80048

== ENCOUNTER → 2018-03-19 | Outpatient (CLI) | payer MEDICARE ==
[2018-03-19 16:17] LABS: ANION GAP 11 (5-19); BLOOD UREA NITROGEN 25 mg/dL (7-20); CALCIUM 9.5 mg/dL (8.4-10.2); CARBON DIOXIDE 31 mmol/L (22-30); CHLORIDE 100 mmol/L (98-107); GLUCOSE 97 mg/dL (75-110); POTASSIUM 4.3 mmol/L (3.6-5.0); SODIUM 142.4 mmol/L (137-145)
== END ==
LOC: OD 15:01
PROVIDERS: ATTEND Internal Medicine
DX: N19 Unspecified kidney failure (principal)
CPT/HCPCS: 36415; 80048

== ENCOUNTER → 2018-04-21 | Outpatient (CLI) | payer MEDICARE ==
[2018-04-21 16:37] LABS: ANION GAP 9 (5-19); BLOOD UREA NITROGEN 39 mg/dL (7-20); CALCIUM 9.6 mg/dL (8.4-10.2); CARBON DIOXIDE 30 mmol/L (22-30); CHLORIDE 102 mmol/L (98-107); GLUCOSE 111 mg/dL (75-110); POTASSIUM 4.6 mmol/L (3.6-5.0); SODIUM 140.5 mmol/L (137-145)
== END ==
LOC: OD 16:01
PROVIDERS: ATTEND Internal Medicine
DX: N19 Unspecified kidney failure (principal)
CPT/HCPCS: 36415; 80048

== ENCOUNTER → 2018-07-07 | Outpatient (CLI) | payer MEDICARE ==
[2018-07-07 15:23] LABS: ANION GAP 10 (5-19); BLOOD UREA NITROGEN 36 mg/dL (7-20); CALCIUM 9.7 mg/dL (8.4-10.2); CARBON DIOXIDE 31 mmol/L (22-30); CHLORIDE 99 mmol/L (98-107); GLUCOSE 99 mg/dL (75-110)
[2018-07-07 15:26] LABS: POTASSIUM 4.7 mmol/L (3.6-5.0)
== END ==
LOC: OD 14:26
PROVIDERS: ATTEND Internal Medicine
DX: N19 Unspecified kidney failure (principal); E83.42 Hypomagnesemia
CPT/HCPCS: 36415; 80048